=== PATIENT | male | born 1975 | race Hispanic/Latino ===

== ENCOUNTER 2019-05-31 18:16 | Inpatient (IN) | payer OTHER, SELFPAY ==
[2019-05-31 20:01] LABS: #Eosinphils 0.1 thou/uL (0.0-0.7); #Lymphocytes 0.6 thou/uL (1.20-3.40); %Basophils 0.1 % (0.0-1.0); %Eosinophils 0.9 % (0.0-10.0); %Lymphocytes 4.4 % (21.0-51.0); %Monocytes 14.4 % (0.0-10.0); %Neutrophils 80.2 % (42.0-75.0); Hemoglobin 7.4 g/dL (14.0-18.0); Mean Corpuscular Hemoglobin 26.2 pg (27.0-31.0); Mean Corpuscular Volume 87.5 fL (78.0-98.0); Mean Platelet Volume 10.7 fL (7.4-10.4); Platelet Count 117 thou/uL (130-400); RBC Distribution Width 18.3 % (11.5-14.5); Red Blood Cell (RBC) Count 2.81 mill/uL (4.70-6.10); White Blood Cell (WBC) Count 13.7 thou/uL (4.8-10.8)
[2019-05-31 20:04] LABS: INR-International Normal Ratio 2.6; PTT 45.1 SEC (22.9-36.1); Prothrombin Time 27.8 SEC (12.0-14.7)
[2019-05-31 20:17] LABS: Anisocytosis SLIGHT = 6-15 cells (100X) (0-5/hpf); Hypochromia SLIGHT = 6-15 cells (100X) (0-5/hpf); MDiff Complete? YES; Ovalocytes SLIGHT = 2-5 cells (100X) (0-1/hpf); Platelet Morphology Comment Appears Decreased; Polychromasia MODERATE = 3-4 cells (100X) (0-2/hpf); Schistocytes SLIGHT = 2-5 cells (100X) (0-1/hpf); Target Cells SLIGHT = 2-5 cells (100X) (0-1/hpf)
--- NOTE | 2019-05-31 20:18 | RAD ---
PORTABLE CHEST: 06/01/19 HISTORY: Shortness of breath. COMPARISON: 05/12/19. Poor inspiration. The lungs appear clear of infiltrate. Vascularity is within normal range. IMPRESSION: No acute finding or interval change noted. POS: AGW
[2019-05-31 20:20] LABS: ALT (SGPT) 67 U/L (8-55); AST (SGOT) 154 U/L (5-34); Albumin 2.2 g/dL (3.5-5.0); Alkaline Phosphatase 114 U/L (40-110); Anion Gap 13 mmol/L (10-20); BUN (Urea Nitrogen) 40 mg/dL (8.9-20.6); Calc. Creatinine Clearance 0 mL/min (70-130); Calcium 7.9 mg/dL (7.8-10.44); Carbon Dioxide 23 mmol/L (22-29); Chloride 94 mmol/L (98-107); Estimated GFR-MDRD 36; Globulin 4.5 g/dL (2.4-3.5); Glucose 128 mg/dL (70-105); Protein, Total 6.7 g/dL (6.0-8.3); Sodium 126 mmol/L (136-145)
[2019-05-31 20:30] LABS: Bilirubin, Total 27.3 mg/dL (0.2-1.2)
[2019-05-31] MEDS ORDERED: Fentanyl 100 MCG/2 ML VIAL ONE (20:49)
[2019-05-31] MEDS ORDERED: Albumin 25% 25 GM/100 ML BOT IVPB SCH (23:45)
[2019-05-31] MEDS ORDERED: Midodrine HCl 5 MG TAB PO SCH (23:45)
[2019-05-31 23:51] LABS: Lactic Acid 1.3 mmol/L (0.5-2.2)
[2019-05-31] MEDS ORDERED: Senokot S 8.6-50 MG TAB PO PRN (23:58)
[2019-05-31] MEDS ORDERED: Ondansetron PF 4 MG/2 ML Vial IVP PRN (23:58)
[2019-06-01] MEDS ORDERED: Dextrose 5 % And 0.9 % NaCl 1,000 ML IV SCH (00:15)
[2019-06-01] MEDS ORDERED: Phytonadione 10 MG/ML AMP PO SCH (00:15)
[2019-06-01] MEDS ORDERED: Fentanyl 100 MCG/2 ML VIAL ONE (00:19)
[2019-06-01] MEDS ORDERED: Pantoprazole 40 MG VIAL IVP SCH (00:30)
--- NOTE | 2019-06-01 01:25 | HP ---
The patient was seen and examined on 05/31/2019. CHIEF COMPLAINT: Abdominal discomfort. HISTORY OF PRESENT ILLNESS: The patient is a 43-year-old male with alcoholic cirrhosis with portal hypertension, presented to the hospital with above complaints. Approximately 3 weeks ago, the patient was admitted at this facility with melena, generalized weakness, and shortness of breath. 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 He was transferred to [facility]. Four days ago, he was discharged from [facility]. Per patient's report, he underwent coiling for the above procedure. TIPS was not performed. He presented to the emergency room with worsening abdominal distention along with discomfort mainly in the lower quadrants. He denies any nausea, vomiting, diarrhea, or constipation. He had paracentesis at 2-[address] [facility]. He denies any fever or chills. The ER resident, Dr. Trevino discussed with the hospitalist at [facility] regarding the transfer. The transfer was declined. His bilirubin at discharge 4 days ago was around 24. His creatinine was in normal range. The ER resident, Dr. Trevino also discussed with Dr. Nichole who recommended IV albumin along with midodrine. He received 1 dose of albumin along with midodrine in the emergency room. PAST MEDICAL HISTORY: 1. Alcoholic cirrhosis with portal hypertension, coagulopathy, and hypoalbuminemia. 2. History of alcohol abuse. The patient denies any current use of alcohol. 3. Hyponatremia. 4. Recent GI bleeding as discussed above. 5. Cholelithiasis. 6. Chronic hepatitis C. His hepatitis C RNA was 42,800 international units per mL earlier this month. PAST SURGICAL HISTORY: EGD and the coiling procedure as discussed above. ALLERGIES: NO KNOWN DRUG ALLERGIES. ALLERGIES: NO KNOWN DRUG ALLERGIES. CURRENT HOME MEDICATIONS: The patient is unable to recall any of his home medication. He states that he is on diuretic along with multivitamin and one medicine for acid reflux, which he was unable to afford (the cost was 500 dollars). He is on oxycodone for pain per patient's report. SOCIAL HISTORY: The patient is a former alcohol abuser. He has not drank since last admission per the patient's report. No current use of smoking, alcohol, or drug use. FAMILY HISTORY: Negative for liver malignancy. Mother with diabetes. REVIEW OF SYSTEMS: All other review of systems were reviewed and were found negative. The patient denies any dysuria, hematuria, or urgency. PHYSICAL EXAMINATION: VITAL SIGNS: Temperature 98.1, respirations 22, pulse rate of 107 with a blood pressure 106/72, O2 saturation 92% on room air. GENERAL: A 43-year-old male, in mild distress due to abdominal discomfort. HEENT: Head, atraumatic and normocephalic. Sclerae anicteric. Dry mucous membranes. No oral lesion. NECK: Supple. No JVD appreciated. No carotid bruit. LUNGS: Showed diminished air entry at bilateral bases. No wheezing, rales, or rhonchi. HEART: S1 and S2 present. Regular rate and rhythm. No rubs or gallops. ABDOMEN: Firm, distended. No guarding or rigidity. There is fluid, thrill, and shifting dullness. No costovertebral angle tenderness. EXTREMITIES: 1+ edema in bilateral lower extremity. No calf tenderness. SKIN: Warm and dry. LYMPH NODE: No palpable lymph nodes in the neck. PERIPHERAL VASCULAR: Radial pulses palpable bilaterally. MUSCULOSKELETAL: No joint swelling or tenderness. LABORATORY FINDINGS: WBC 13.7 with hemoglobin 7.4, hematocrit 24.6 with platelet of 117. Recent iron profile showed iron of 17 with TIBC 263, ferritin of 24.6, vitamin B12 of 1276. Folic acid was normal at 11.9, alpha-fetoprotein was 3.1, albumin 2.2, bilirubin of 27.3 with AST 154, ALT 67, alkaline phosphatase 114. Ammonia was normal. Lactic acid normal. Sodium 126 with creatinine 2.03. Chest x-ray by my review show diminished air entry at bilateral bases. No rales or rhonchi. Telemetry monitoring by my review showed sinus tachycardia. IMPRESSION: 1. Symptomatic ascites secondary to decompensated cirrhosis. 2. Cirrhosis secondary to alcoholism as well as chronic hepatitis C. 3. Acute kidney injury, probably secondary to diuretics. Questionable hepatorenal syndrome. 4. Hyponatremia secondary to cirrhosis. 5. Hypoalbuminemia, coagulopathy, and thrombocytopenia secondary to cirrhosis. 6. History of alcohol abuse. 7. Chronic anemia. His hemoglobin at discharge [address] [facility] was 7.4 per ER physician's report. 8. Cholelithiasis. 9. History of duodenal varices, status post recent intervention at [facility] PLAN: The patient will be monitored on the telemetry unit. We will start him on albumin along with midodrine per GI recommendation. We will also start him on gentle hydration. Consult GI and Nephrology. IV PPIs. N.p.o. We will check ultrasound hepatic Doppler to rule out biliary obstruction versus thrombosis in the portal vein. We will also schedule a paracentesis. We will give him one dose of vitamin K. We will recheck PT/INR in a.m. Recheck all labs in a.m. Blood cultures have been sent. We will hold antibiotics and steroids per GI recommendation. The patient will be kept n.p.o. Ascitic fluid cell count, Gram stain, and culture has been ordered. We will also check urinalysis. Plan of care was discussed with the patient in detail. He stated understanding. Job ID: [id number]
[2019-06-01] MEDS: Morphine 2 MG/ML SYRINGE SLOW IVP PRN ×2 (03:50→07:45)
[2019-06-01] MEDS: Albumin 25% 25 GM/100 ML BOT IVPB SCH ×2 (05:14→17:09)
[2019-06-01 05:52] LABS: #Eosinphils 0.1 thou/uL (0.0-0.7); #Lymphocytes 0.8 thou/uL (1.20-3.40); #Monocytes 1.8 thou/uL (0.11-0.59); #Neutrophils 9.4 thou/uL (1.40-6.50); %Basophils 0.2 % (0.0-1.0); %Lymphocytes 6.4 % (21.0-51.0); %Monocytes 14.5 % (0.0-10.0); Hemoglobin 6.7 g/dL (14.0-18.0); Mean Corpuscular HGB CONC 30.6 g/dL (32.0-36.0); Mean Corpuscular Hemoglobin 26.5 pg (27.0-31.0); Mean Corpuscular Volume 86.6 fL (78.0-98.0); Platelet Count 99 thou/uL (130-400); RBC Distribution Width 18.2 % (11.5-14.5); Red Blood Cell (RBC) Count 2.54 mill/uL (4.70-6.10); White Blood Cell (WBC) Count 12.1 thou/uL (4.8-10.8)
[2019-06-01 05:53] LABS: INR-International Normal Ratio 2.9; Prothrombin Time 29.9 SEC (12.0-14.7)
[2019-06-01 05:54] LABS: PTT 48.1 SEC (22.9-36.1)
[2019-06-01 06:11] LABS: ALT (SGPT) 61 U/L (8-55); AST (SGOT) 139 U/L (5-34); Albumin 2.1 g/dL (3.5-5.0); Alkaline Phosphatase 114 U/L (40-110); Anion Gap 11 mmol/L (10-20); BUN (Urea Nitrogen) 44 mg/dL (8.9-20.6); Bilirubin, Direct Greater than 10.0 mg/dL (0.1-0.3); Calc. Creatinine Clearance 73 mL/min (70-130); Calcium 7.6 mg/dL (7.8-10.44); Carbon Dioxide 24 mmol/L (22-29); Chloride 95 mmol/L (98-107); Estimated GFR-MDRD 35; Glucose 133 mg/dL (70-105); Lipase 98 U/L (8-78); Magnesium 2.3 mg/dL (1.6-2.6); Phosphorus 4.3 mg/dL (2.3-4.7); Potassium 3.7 mmol/L (3.5-5.1); Protein, Total 6.1 g/dL (6.0-8.3); Sodium 126 mmol/L (136-145)
[2019-06-01] MEDS ORDERED: Sodium Bicarbonate 2.5 MEQ/5 ML VIAL ONE (08:34)
[2019-06-01 08:48] LABS: Bilirubin 3+ (Negative); Blood, Urine Negative (Negative); Clarity Turbid (Clear); Glucose, Urine (Dipstick) Normal (Negative); Leukocyte Negative Leu/uL (Negative); Nitrite Negative (Negative); Protein, Urine (Dipstick) Negative (Neg-Trace); RBC/HPF 0-3 HPF (0-3); Squamous Epithelial 0-3 HPF (0-3); Urobilinogen Normal mg/dL (Less than 2)
[2019-06-01 08:49] LABS: Bacteria/HPF 1+ HPF (None Seen)
[2019-06-01] MEDS ORDERED: Midodrine HCl 5 MG TAB PO SCH (09:00)
--- NOTE | 2019-06-01 09:30 | ULT ---
Ultrasound-guided paracentesis: HISTORY: Symptomatic ascites FINDINGS: Informed consent obtained prior to the procedure. Preprocedural imaging demonstrated signif icant ascites throughout the abdomen and pelvis. Left lower quadrant prepped and draped in normal sterile fashion and anesthetized with 1% buffered li docaine. With direct sonographic guidance, 5 Serbian Yueh catheter is advanced into the ascites and removal of the stylet yielded yellow fluid. 1.0 L was removed. The patient tolerated the procedure well. No postprocedural complications. IMPRESSION: Successful ultrasound-guided paracentesis yielding 1 L of yellow ascites.
[2019-06-01] MEDS: Midodrine HCl 5 MG TAB PO SCH ×3 (10:16→22:52)
[2019-06-01] MEDS: Multivit, Therapeutic 1 TAB PO SCH (10:16)
[2019-06-01] MEDS: Thiamine 100 MG TAB PO SCH (10:16)
[2019-06-01] MEDS: Folic Acid 1 MG TAB PO SCH (10:16)
[2019-06-01] MEDS: Pantoprazole 40 MG VIAL IVP SCH ×3 (10:17→22:52)
[2019-06-01 11:03] LABS: BF Color Yellow; Body Fluid Source Abscess Fluid; Clarity Hazy (Clear); Tube # EDTA
[2019-06-01 11:04] LABS: RBC Count-Automated (BF) 270 /cumm; WBC/Nucleated-Auto (BF) 173 uL
[2019-06-01 11:06] LABS: BF Segmented Neutrophils 2 %; Cell Count Non Hematic 64 %; Lymphocytes 34 %
[2019-06-01] MEDS: traMADol HCl 50 MG TAB PO PRN ×2 (11:39→17:08)
--- NOTE | 2019-06-01 12:29 | CON ---
DATE OF CONSULTATION: REASON FOR CONSULTATION: Elevated creatinine. HISTORY OF PRESENT ILLNESS: This is a 43-year-old gentleman, who presented to the hospital with hepatorenal syndrome. The patient's creatinine has increased from a baseline of 0.7 to 2.08. The patient has significant liver failure and variceal bleeding. The patient underwent a coiling procedure recently. PAST MEDICAL HISTORY: Significant for alcoholic cirrhosis, alcohol abuse, hyponatremia, GI bleeding, cholelithiasis, hepatitis C, and history of EGD and coiling. ALLERGIES: REVIEWED. MEDICATIONS: Home medications list reviewed. Hospital medications reviewed. SOCIAL HISTORY: alcohol abuse. REVIEW OF SYSTEMS: A 15-point review of system was performed, negative except for positives noted above. GENERAL: HEAD: NECK: No swelling or lumps. NOSE: No epistaxis or discharge. EYES: No diplopia or pain. RESPIRATORY: CARDIOVASCULAR: GASTROINTESTINAL: /FIELD CREW CHIEF: MUSCULOSKELETAL: No joint pain. NEUROPSYCHIATIC SYSTEMS: No suicidal ideation. No ideation. SKIN: Denies any rash or ulcer. CONSTITUTIONAL: No fever or chills. PHYSICAL EXAMINATION: CONSTITUTIONAL: The patient is awake and alert. VITAL SIGNS: Pulse 75, breathing 16, blood pressure was . GENERAL APPEARANCE AND MENTAL STATUS: Fair. HEAD/NECK: Normocephalic. Atraumatic. EYES: EOMI. No deformity. EARS: Clear. No ulcers. NOSE: Intact. No lesions. MOUTH: Clear. No discharge. THROAT: Clear. No exudate. LUNGS: Clear. No crackles. CARDIAC: S1, S2. No rub. ABDOMEN: Benign. Bowel sounds positive. GENITALIA/RECTUM: Disla absent. BACK/EXTREMITIES: Edema 0+. NEUROLOGICAL: Alert and motor intact. SKIN: LYMPHATICS: ASSESSMENT AND RECOMMENDATION: 1. Acute kidney injury with chronic kidney disease stage 3, most likely due to hepatorenal syndrome. I would recommend hydration. 2. Other possible causes could be increasing abdominal pressure. No indication for dialysis. Hypertension, stable. Anemia, stable. Overall prognosis is poor. Job ID: [id number]
--- NOTE | 2019-06-01 14:56 | PDOC.HOSPP ---
- Subjective Encounter Date: 06/01/19 Encounter Time: 14:54 Subjective: The patient had paracentesis and had 1 litr taken out. - Objective Vital Signs & Weight: Vital Signs (12 hours) Temp Pulse Resp BP Pulse Ox 06/01/19 11:03 97.7 F 104 H 18 137/64 94 L 06/01/19 07:48 92 L 06/01/19 07:40 97.8 F 104 H 22 H 138/65 92 L 06/01/19 04:00 98.1 F 102 H 16 132/69 94 L Weight Admit Weight 242 lb 3.2 oz Weight 242 lb 3.2 oz I&O: 05/31/19 06/01/19 06/02/19 06:59 06:59 06:59 Intake Total 0 Output Total 400 Balance -400 Result Diagrams: 06/01/19 05:01 06/01/19 05:01 Hospitalist ROS - Medication Medications: Active Medications Generic Name Dose Route Start Last Admin Trade Name Freq PRN Reason Stop Dose Admin Albumin Human 25 gm 06/01/19 06:00 06/01/19 05:14 Albumin 25% IVPB 06/02/19 06:01 25 gm Q8HR GIN Administration Folic Acid 1 mg 06/01/19 09:00 06/01/19 10:16 Folvite PO 1 mg DAILY GIN Administration Midodrine 5 mg 06/01/19 09:00 06/01/19 10:16 Proamatine PO 5 mg BID GIN Administration Multivitamins 1 tab 06/01/19 09:00 06/01/19 10:16 Theragran PO 1 tab DAILY GIN Administration Pantoprazole Sodium 40 mg 06/01/19 09:00 06/01/19 10:17 Protonix IVP 40 mg Q12HR GIN Administration Thiamine HCl 100 mg 06/01/19 09:00 06/01/19 10:16 Thiamine PO 100 mg DAILY GIN Administration Tramadol HCl 50 mg 06/01/19 10:48 06/01/19 11:39 Ultram PO 50 mg Q6H PRN Administration Pain - Exam General Appearance: NAD, awake alert, ill appearing Eye: PERRL, anicteric sclera, scleral icterus ENT: normocephalic atraumatic, no oropharyngeal lesions, moist mucosa, dry oral mucosa Neck: supple, symmetric, no JVD, no thyromegaly, no lymphadenopathy, no carotid bruit, JVD Heart: RRR, no murmur, no gallops, no rubs, normal peripheral pulses, irregular , diminshed peripheral pulses, murmur present, II/IV, III/IV Gastrointestinal: soft, non-tender, non-distended, normal bowel sounds, no palpable masses, no hepatomegaly, no splenomegaly, no bruit, no guarding, no rigidity, tender to palpation, distended, diminished bowl sounds, voluntary guarding Extremities: no cyanosis, no clubbing, no edema, 1+ LE edema, 2+ LE edema, clubbing Skin: normal turgor, no lesions, no rashes, tenting Neurological: cranial nerve grossly intact, normal sensation to touch, no weakness, no focal deficits, no new deficit, facial droop, hemiplegia, speech deficit, vision deficit Psychiatric: normal affect, normal behavior, A&O x 3, oriented to person, oriented to place, oriented to time, not oriented, flat affect, somnolent, lethargic Hosp A/P (1) Ascites Code(s): R18.8 - OTHER ASCITES Status: Acute Plan: paracentesis, GI consult (2) Anemia Code(s): D64.9 - ANEMIA, UNSPECIFIED Status: Acute
[2019-06-01] MEDS ORDERED: Multivitamins, Adult 10 ML, Folic Acid 1 MG, Thiamine HCl 100 MG in Dextrose 5 %-0.45 %... IV SCH (15:00)
--- NOTE | 2019-06-01 15:46 | ULT ---
HEPATIC ULTRASOUND WITH DOPPLER: HISTORY: Abnormal LFTs. CORRELATION: CT scan from 05/12/2019. FINDINGS: The liver has an irregular surface, consistent with cirrhosis. There is a 12 x 15 x 12 mm hyperechoic focus in the left lobe of the liver and an 11 x 10 x 9 mm hyperechoic focus in the right lobe of the liver. the spleen is enlarged measuring 19 cm in length. There is sludge in the gallbladder without gallbladder wall thickening. The common duct measures 4 mm in diameter. The pancreas is not satisfact orily visualized due to overlying bowel gas. No right-sided hydronephrosis is seen. There is a modera te amount of ascites. There is suggestion of bi-directional flow in the main portal vein. IMPRESSION: 1. Cirrhosis of the liver. 2. Splenomegaly. 3. Ascites. 4. Gallbladder sludge. 5. Hyperechoic lesions in the liver. These likely represent hemangiomas. POS: LA NENA
[2019-06-01] MEDS: Octreotide Acetate 1,250 MCG in Sodium Chloride 0.9% 250 ML 250 ML IVPB SCH (18:18)
[2019-06-01] MEDS: Dextrose 5 % And 0.9 % NaCl 1,000 ML IV SCH (18:45)
[2019-06-01] MEDS: Multivitamins, Adult 10 ML, Folic Acid 1 MG, Thiamine HCl 100 MG in Dextrose 5 %-0.45 %... IV SCH (22:49)
[2019-06-02] MEDS: Albumin 25% 25 GM/100 ML BOT IVPB SCH ×2 (00:09→10:15)
[2019-06-02] MEDS: traMADol HCl 50 MG TAB PO PRN ×3 (02:07→19:20)
[2019-06-02] MEDS: Dextrose 5 % And 0.9 % NaCl 1,000 ML IV SCH ×3 (03:07→21:56)
[2019-06-02 05:46] LABS: Bilirubin, Total 24.9 mg/dL (0.2-1.2)
[2019-06-02 05:49] LABS: INR-International Normal Ratio 3.1; PTT 50.3 SEC (22.9-36.1); Prothrombin Time 31.7 SEC (12.0-14.7)
[2019-06-02 05:56] LABS: Anisocytosis SLIGHT = 6-15 cells (100X) (0-5/hpf); Band 8 % (5-11); Eosinophils 2 % (0-10); Hemoglobin 6.9 g/dL (14.0-18.0); Lymphocytes 4 % (21-51); MDiff Complete? YES; Mean Corpuscular HGB CONC 30.6 g/dL (32.0-36.0); Mean Corpuscular Hemoglobin 26.4 pg (27.0-31.0); Mean Corpuscular Volume 86.1 fL (78.0-98.0); Mean Platelet Volume 10.7 fL (7.4-10.4); Monocytes 10 % (0-10); Neutrophil 76 % (42-75); Platelet Count 78 thou/uL (130-400); Platelet Morphology Comment Appears Decreased; RBC Distribution Width 17.3 % (11.5-14.5); Red Blood Cell (RBC) Count 2.63 mill/uL (4.70-6.10); White Blood Cell (WBC) Count 9.6 thou/uL (4.8-10.8)
[2019-06-02 06:09] LABS: ALT (SGPT) 49 U/L (8-55); AST (SGOT) 111 U/L (5-34); Albumin 2.8 g/dL (3.5-5.0); Alkaline Phosphatase 99 U/L (40-110); Anion Gap 12 mmol/L (10-20); BUN (Urea Nitrogen) 38 mg/dL (8.9-20.6); Calc. Creatinine Clearance 85 mL/min (70-130); Calcium 7.6 mg/dL (7.8-10.44); Carbon Dioxide 24 mmol/L (22-29); Chloride 97 mmol/L (98-107); Estimated GFR-MDRD 42; Glucose 123 mg/dL (70-105); Magnesium 2.3 mg/dL (1.6-2.6); Phosphorus 3.4 mg/dL (2.3-4.7); Potassium 3.9 mmol/L (3.5-5.1); Protein, Total 6.1 g/dL (6.0-8.3); Sodium 129 mmol/L (136-145)
[2019-06-02 06:16] LABS: Bilirubin, Direct 14.7 mg/dL (0.1-0.3)
--- NOTE | 2019-06-02 08:40 | CON ---
DATE OF CONSULTATION: 06/01/2019 REASON FOR CONSULTATION: Liver disease. HISTORY OF PRESENT ILLNESS: Mr. Go is a 43-year-old man, who is admitted to the hospital with ascites and end-stage liver disease. He was at this facility earlier on May, admitted from the to the and was seen by Dr. Rodriguez, my partner. He was deemed to have severe alcoholic liver disease and cirrhosis. He had melena before that admission, came with a hemoglobin of 4.8, INR was 1.6, bilirubin of 2.7. So the hepatosplenomegaly, nodular liver, prominent portal hypertensive changes with splenomegaly and varices. He underwent an EGD, by Dr. Rodriguez was found to have varices with stigmata of bleeding in the duodenum. He was kept on octreotide. Stabilized, but hepatitis C antibody and RNA came back positive ultimately. He had no signs of SBP at that admission and was ultimately transferred to [facility] in [place] for possible TIPS secondary to small-bowel varices. The patient was readmitted last night. His significant other in the patient's self note that he was having worsening distention and abdominal pain. His pain is seemed to worse since he had the procedure in [place] at [facility] they say. We have no records, but it was performed. The significant other notes he did not have a TIPS, but in fact they did an upper scope with some type of "glue injection into the varix because it was about to burst. The patient states he has had worse pain since that time. Ultimately, his ascites got worse and he came into the hospital last night for paracentesis. He denies any fever or chills. He denies any nausea or vomiting. He denies any confusion. He states he has been trying to stick to his fluid restriction and low-sodium diet and take his medicines. The patient's significant other asked about liver transplant evaluations and information about insurance. They reported at [facility], so they could evaluate him for transplant if he became insured. He reports he is not drinking any longer. He denies using Tylenol or other NSAIDs. He had a diagnostic paracentesis today, which showed no signs of SBP. His liver function is much worse, his bilirubin up to 24. He has been started on some IV albumin and midodrine secondary to low blood pressure and insufficiency for possible hepatorenal syndrome, and Nephrology has been consulted. PAST MEDICAL HISTORY: 1. Alcoholic cirrhosis. 2. Portal hypertension. 3. Coagulopathy. 4. Hypoalbuminemia. 5. History of alcohol abuse. He states he has not drank since the 4th of this month. 6. Hyponatremia. 7. Recent GI bleed from duodenal varices with apparent injection with fibrin glue or some type of other products similar to that in [place]. 8. Cholelithiasis. 9. Chronic hepatitis C. 10. New onset renal insufficiency. PAST SURGICAL HISTORY: EGD here and EGD at [facility]. ALLERGIES: NONE KNOWN. MEDICATIONS: At home, he was taking the vitamin, reflux, a diuretic, and some oxycodone for pain. Home list includes oxycodone, thiamine, sucralfate, Aldactone, Protonix, multivitamin, melatonin, furosemide, and folic acid. His present medications here include albumin 25 IV q.8h, calcium carbonate, D5 normal saline at 50, folic acid, midodrine 5 mg b.i.d., multivitamin, Zofran p.r.n. Protonix 40 mg q.12, thiamine, and tramadol. PHYSICAL EXAMINATION: VITAL SIGNS: On admission, temperature 97.9, pulse 102 to 104, blood pressure 137/64. GENERAL: He is deeply jaundiced and icteric. He is fetor hepaticus. NECK: Supple without nodes. HEENT: Conjunctivae and sclerae are jaundiced respectively. LUNGS: Clear. HEART: Regular rhythm. ABDOMEN: Protuberant, somewhat firm. There is no rebound or guarding. There is dullness. There is no fluid wave. There is palpable hepatomegaly. EXTREMITIES: No clubbing or cyanosis. There is edema. He has positive asterixis. LABORATORY STUDIES: Hemoglobin 7.4 on admission, it was 6.6 on discharge on 05/13, 6.7 this morning; platelets 99; and white count 12. INR 2.9. Sodium 126; potassium 3.7; BUN and creatinine 44 and 2.08, they were 40 and 2.03 yesterday. Bilirubin is 27, it was 2.7 on 05/12; AST and ALT are 139 and 61; and alkaline phosphatase is 114. Ceruloplasmin was normal on last admission. AFP was normal on last admission at 3.1. B12 was normal. Folate was normal. Lipase was normal. Autoimmune workup was negative. Iron levels were low. Imaging today; 1 L of yellow ascites was removed by ultrasound. CT abdomen and pelvis on 05/12, as per HPI. ASSESSMENT: 1. Cirrhosis with end-stage liver disease. He has had rapid progression of his elevated bilirubin, likely due to his severe alcoholic hepatitis. He had no signs of acute hepatitis A, B, or C. He does have chronic C. He got signs of fluid overload, hyponatremia, encephalopathy, and coagulopathy, all of which indicate poor prognosis and high risk of mortality. His discriminant function is well over 40. 2. Tap negative for spontaneous bacterial peritonitis. 3. Acute renal failure, likely related to hepatorenal syndrome, possibly related to medications at home. No signs of spontaneous bacterial peritonitis. 4. History of variceal bleeding with fibrin glue or some type of equaling procedure of the varices at [facility]. Those records are not available. He was sent for a transjugular intrahepatic portosystemic shunt, but they felt this was a better management tool. He has had no further bleeding since then, but remains anemic. The patient does feel that since then his stomach hurt more. I suspect the increased discomfort is probably related to his progressively worsening liver disease. RECOMMENDATIONS: 1. Albumin IV q.8. Agree with transfusing a unit of blood, holding albumin during that time. Midodrine b.i.d., Protonix, and normal saline at 100 an hour. 2. We would start octreotide drip as well, which could be helpful in hepatorenal syndrome. 3. As there are no signs of infection at this time, we will start steroids, this may help his acute alcoholic hepatitis. However, if he has worsening renal failure, studies have shown that with elevated creatinine is not helpful. 4. We would consult Palliative Care. I have had a win discussion that the patient is high risk of mortality this admission. Job ID: [id number]
[2019-06-02] MEDS: Midodrine HCl 5 MG TAB PO SCH ×2 (09:00→21:40)
[2019-06-02] MEDS: Thiamine 100 MG TAB PO SCH (09:00)
[2019-06-02] MEDS: Multivit, Therapeutic 1 TAB PO SCH (09:00)
[2019-06-02] MEDS: Folic Acid 1 MG TAB PO SCH (09:00)
[2019-06-02] MEDS: Pantoprazole 40 MG VIAL IVP SCH ×2 (09:01→21:40)
[2019-06-02] MEDS: prednisoLONE 10 MG ODT TAB PO SCH (10:14)
[2019-06-02] MEDS: Octreotide Acetate 1,250 MCG in Sodium Chloride 0.9% 250 ML 250 ML IVPB SCH (10:15)
[2019-06-02] MEDS: Multivitamins, Adult 10 ML, Folic Acid 1 MG, Thiamine HCl 100 MG in Dextrose 5 %-0.45 %... IV SCH (10:18)
--- NOTE | 2019-06-02 12:37 | PRG ---
DATE OF SERVICE: 06/02/2019 SUBJECTIVE: Mr. Go is sitting up at the side of the bed, eating. He is without any confusion. He denies any pain. OBJECTIVE: VITAL SIGNS: Temperature is 98, pulse 94, blood pressure 143/63. HEENT: He is icteric, deeply jaundiced. LUNGS: Clear. ABDOMEN: Tense and distended with dullness to percussion. EXTREMITIES: Reveal edema. He has gross anasarca. He has strong fetor hepaticus. LABORATORY DATA: White count 9.6, hemoglobin 6.9, platelet count 78,000. INR 3. Sodium 129 with potassium of 3.9, BUN and creatinine are 38 and 1.78, glucose 123. Bilirubin 24.9, direct 14; AST 111; ALT 49; albumin 2.8. Protein 6. Hepatic liver Dopplers yesterday showed no evidence of portal vein thrombosis, to and fro movement of the portal vein. Paracentesis fluid showed 173 white blood cells, no evidence of SBP. ASSESSMENT: 1. Acute alcoholic hepatitis with liver failure. 2. History of gastrointestinal bleed with duodenal varices, transferred last admission to [facility] where he had either coiling or glue instillation in the varices and not a TIPS. 3. The patient readmitted with worsening ascites and marked decompensation and liver failure with the INR of over 3 now, bilirubin up to 24 . There are no signs of any vascular disease or infarction of the liver on imaging studies. We would not perform any contrast studies on him. This is probably natural progression of the acute alcoholic hepatitis. It is possible that hypertension with bleeding or interventions with glue or emboli in the duodenum could have affected the liver, but there is no evidence of this at this time. Presently, he is without insurance, without options for liver transplant as he has been drinking up until just a few weeks ago. RECOMMENDATIONS: 1. I would continue octreotide and albumin for his renal failure, what appears to be hepatorenal failure. We would tap with paracentesis symptomatically as needed with Interventional Radiology. 2. We would continue banana bag daily. 3. If his blood pressure stays up, he does not need midodrine. We would continue octreotide drip as it can help with hepatorenal failure and we would continue the prednisolone as it could help with the alcoholic hepatitis, although it is less likely it will help in individuals with hepatorenal failure. His creatinine is improving however. Dr. Quinones will be here to follow over the weekend. The patient's risk for morbidity and mortality is quite high. Job ID: [id number]
--- NOTE | 2019-06-02 14:30 | PDOC.HOSPP ---
- Subjective Encounter Date: 06/02/19 Encounter Time: 14:28 Subjective: doing well, abdominal pain better - Objective Vital Signs & Weight: Vital Signs (12 hours) Temp Pulse Resp BP Pulse Ox 06/02/19 08:00 98.8 F 94 18 142/63 H 94 L 06/02/19 03:32 98.4 F 98 18 124/68 95 Weight Admit Weight 242 lb 3.2 oz Weight 242 lb 3.2 oz I&O: 06/01/19 06/02/19 06/03/19 06:59 06:59 06:59 Intake Total 50 Output Total 400 Balance -350 Result Diagrams: 06/02/19 04:50 06/02/19 04:50 Hospitalist ROS - Medication Medications: Active Medications Generic Name Dose Route Start Last Admin Trade Name Freq PRN Reason Stop Dose Admin Folic Acid 1 mg 06/01/19 09:00 06/02/19 09:00 Folvite PO 1 mg DAILY GIN Administration Dextrose/Sodium Chloride 1,000 mls @ 100 mls/hr 06/01/19 14:30 06/02/19 09:01 D5 0.9% Ns IV Not Given .Q10H GIN Octreotide Acetate 1,250 mcg/ 251.25 mls @ 15.07 mls/hr 06/01/19 14:30 10:15 Sodium Chloride IVPB 251.25 mls INF GIN Administration 75 MCG/HR Multivitamins 10 ml/ Folic 1,011.2 mls @ 100 mls/hr 06/01/19 20:00 06/02/19 10:18 Acid 1 mg/ Thiamine HCl 100 mg IV 06/04/19 06:07 1,011.2 mls / Dextrose/Sodium Chloride 2000 GIN Administration Midodrine 5 mg 06/01/19 09:00 06/02/19 09:00 Proamatine PO 5 mg BID GIN Administration Multivitamins 1 tab 06/01/19 09:00 06/02/19 09:00 Theragran PO 1 tab DAILY GIN Administration Pantoprazole Sodium 40 mg 06/01/19 09:00 06/02/19 09:01 Protonix IVP 40 mg Q12HR GIN Administration Prednisolone 40 mg 06/02/19 09:00 06/02/19 10:14 Orapred Odt PO 40 mg DAILY GIN Administration Thiamine HCl 100 mg 06/01/19 09:00 06/02/19 09:00 Thiamine PO 100 mg DAILY GIN Administration Tramadol HCl 50 mg 06/01/19 10:48 06/02/19 09:17 Ultram PO 50 mg Q6H PRN Administration Pain - Exam General Appearance: NAD, awake alert, ill appearing Eye: PERRL, anicteric sclera, scleral icterus ENT: normocephalic atraumatic, no oropharyngeal lesions, moist mucosa, dry oral mucosa Neck: supple, symmetric, no JVD, no thyromegaly, no lymphadenopathy, no carotid bruit, JVD Heart: RRR, no murmur, no gallops, no rubs, normal peripheral pulses, irregular , diminshed peripheral pulses, murmur present, II/IV, III/IV Respiratory: CTAB, no wheezes, no rales, no ronchi, normal chest expansion, no tachypnea, normal percussion, rales, rhonchi, tachypneic, wheezes Gastrointestinal: soft, non-tender, non-distended, normal bowel sounds, no palpable masses, no hepatomegaly, no splenomegaly, no bruit, no guarding, no rigidity, tender to palpation, distended, diminished bowl sounds, voluntary guarding Extremities: no cyanosis, no clubbing, no edema, 1+ LE edema, 2+ LE edema, clubbing Skin: normal turgor, no lesions, no rashes, tenting Hosp A/P (1) Ascites Code(s): R18.8 - OTHER ASCITES Status: Acute (2) Anemia Code(s): D64.9 - ANEMIA, UNSPECIFIED Status: Acute - Plan continue care, apreciate GI input. further paracentesis as per GI
--- NOTE | 2019-06-02 15:02 | PRG ---
DATE OF SERVICE: 06/02/2019 SUBJECTIVE: A 43-year-old gentleman, being seen for acute kidney injury. The patient denied nausea, vomiting, or chest pain. OBJECTIVE: CONSTITUTIONAL: The patient is awake and alert. VITAL SIGNS: Pulse 94, breathing 16, blood pressure 124/68. GENERAL APPEARANCE AND MENTAL STATUS: Fair. HEAD/NECK: Normocephalic. Atraumatic. EYES: EOMI. No deformity. EARS: Clear. No ulcers. NOSE: Intact. No lesions. MOUTH: Clear. No discharge. THROAT: Clear. No exudate. LUNGS: Clear. No crackles. CARDIAC: S1, S2. No rub. ABDOMEN: Benign. Bowel sounds positive. GENITALIA/RECTUM: Disla absent. BACK/EXTREMITIES: Edema 0+. NEUROLOGICAL: Alert and motor intact. SKIN: LYMPHATICS: LABORATORY DATA: Showed hemoglobin 6.9. Creatinine 1.7. ASSESSMENT AND PLAN: 1. Acute kidney injury with chronic kidney disease, stage 3, improved. 2. Hypertension, stable. 3. Anemia, stable. We would recommend transfusion. 4. Hyponatremia, stable. 5. Prognosis is poor. Job ID: [id number]
[2019-06-03] MEDS: Octreotide Acetate 1,250 MCG in Sodium Chloride 0.9% 250 ML 250 ML IVPB SCH ×2 (02:53→21:08)
[2019-06-03] MEDS: Dextrose 5 % And 0.9 % NaCl 1,000 ML IV SCH ×2 (02:53→15:06)
[2019-06-03] MEDS: traMADol HCl 50 MG TAB PO PRN ×3 (06:57→20:56)
[2019-06-03] MEDS: Folic Acid 1 MG TAB PO SCH (08:45)
[2019-06-03] MEDS: Thiamine 100 MG TAB PO SCH (08:45)
[2019-06-03] MEDS: Midodrine HCl 5 MG TAB PO SCH ×2 (08:45→20:57)
[2019-06-03] MEDS: Pantoprazole 40 MG VIAL IVP SCH ×2 (08:46→20:57)
[2019-06-03] MEDS: prednisoLONE 10 MG ODT TAB PO SCH (08:46)
[2019-06-03] MEDS: Multivit, Therapeutic 1 TAB PO SCH (08:47)
[2019-06-03] MEDS ORDERED: Multivitamins, Adult 10 ML, Folic Acid 1 MG, Thiamine HCl 100 MG in Dextrose 5 %-0.45 %... IV SCH (10:00)
[2019-06-03 11:15] LABS: Anion Gap 13 mmol/L (10-20); BUN (Urea Nitrogen) 27 mg/dL (8.9-20.6); Calc. Creatinine Clearance 115 mL/min (70-130); Calcium 7.7 mg/dL (7.8-10.44); Carbon Dioxide 21 mmol/L (22-29); Chloride 101 mmol/L (98-107); Estimated GFR-MDRD 58; Glucose 124 mg/dL (70-105); Potassium 3.9 mmol/L (3.5-5.1); Sodium 131 mmol/L (136-145)
--- NOTE | 2019-06-03 11:59 | PRG ---
DATE OF SERVICE: 06/03/2019 SUBJECTIVE: A 43-year-old gentleman, being seen for acute kidney injury. The patient denies any nausea, vomiting, or chest pain. OBJECTIVE: CONSTITUTIONAL: The patient is awake and alert. VITAL SIGNS: Pulse 75, breathing 16, and blood pressure 128/59. GENERAL APPEARANCE AND MENTAL STATUS: Fair. HEAD/NECK: Normocephalic. Atraumatic. EYES: EOMI. No deformity. EARS: Clear. No ulcers. NOSE: Intact. No lesions. MOUTH: Clear. No discharge. THROAT: Clear. No exudate. LUNGS: Clear. No crackles. CARDIAC: S1, S2. No rub. ABDOMEN: Benign. Bowel sounds positive. GENITALIA/RECTUM: Disla absent. BACK/EXTREMITIES: Edema 0+. NEUROLOGICAL: Alert and motor intact. SKIN: LYMPHATICS: LABORATORY DATA: Showed hemoglobin 6.9. Creatinine 1.3. ASSESSMENT AND PLAN: 1. Acute kidney injury, improved. 2. Hypertension, stable. 3. Anemia. We would recommend transfusion. No indication for dialysis. I will sign off on this patient. Please reconsult as needed. Job ID: [id number]
--- NOTE | 2019-06-03 19:00 | PRG ---
DATE OF SERVICE: 06/03/2019 This is a cross coverage for Dr. Francisco J Morgan. SUBJECTIVE: Mr. Ranulfo Go is a 43-year-old with chronic alcohol abuse with alcoholic hepatitis with hepatic decompensation with ascites and deep jaundice. He is making good progress. He appears very comfortable. His liver has been deeply jaundiced. However, he has no nausea, no vomiting. No abdominal pain. He is eating fairly well. He actually offers no complaints at present. PHYSICAL EXAMINATION: VITAL SIGNS: Afebrile. Temperature 97.2 degrees Fahrenheit, pulse is 96, blood pressure 138/84. GENERAL: He is deeply jaundiced. NECK: Supple. CARDIOVASCULAR: First and second heart sounds heard. LUNGS: Clear to auscultation. ABDOMEN: Distended, but soft. Abdomen is nontender. No organomegaly. No masses. LABORATORY DATA: From today; sodium 131, potassium 3.9, chloride 101, bicarb 21, BUN is 27 it is coming down from 44, creatinine is 1.36, glucose 124, calcium 7.7, bilirubin 24.4, direct 14.7, AST 111, ALT 49. CLINICAL IMPRESSION: 1. Alcoholic hepatitis with decompensation. 2. Ascites. 3. Thrombocytopenia. 4. Possible hepatorenal syndrome, on IV octreotide and midodrine. RECOMMENDATIONS: Continue present treatment. No change in treatment plan necessary. Job ID: [id number]
[2019-06-03 21:14] LABS: Hemoglobin 7.8 g/dL (14.0-18.0); Mean Corpuscular HGB CONC 30.5 g/dL (32.0-36.0); Mean Corpuscular Hemoglobin 26.9 pg (27.0-31.0); Mean Corpuscular Volume 88.3 fL (78.0-98.0); Platelet Count 72 thou/uL (130-400); RBC Distribution Width 17.9 % (11.5-14.5); Red Blood Cell (RBC) Count 2.91 mill/uL (4.70-6.10); White Blood Cell (WBC) Count 9.9 thou/uL (4.8-10.8)
[2019-06-03] MEDS ORDERED: Dextrose 5 % And 0.9 % NaCl 1,000 ML IV SCH (21:15)
[2019-06-03 21:27] LABS: ALT (SGPT) 60 U/L (8-55); AST (SGOT) 132 U/L (5-34); Albumin 2.7 g/dL (3.5-5.0); Alkaline Phosphatase 120 U/L (40-110); Protein, Total 6.6 g/dL (6.0-8.3)
[2019-06-03 21:38] LABS: Bilirubin, Total 26.2 mg/dL (0.2-1.2)
--- NOTE | 2019-06-03 22:12 | PDOC.HOSPP ---
- Subjective Encounter Date: 06/03/19 Encounter Time: 20:00 Subjective: Patient states that he feels more short of breath and more distended than this morning. He is requesting paracentesis, says that normally they get 5L out and but yesterday they only got 1L out. He was supposed to get TIPs in [place] but couldn't do it aylin his blood counts were too high. - Objective Vital Signs & Weight: Vital Signs (12 hours) Temp Pulse Resp BP Pulse Ox 06/03/19 16:00 97.5 F L 102 H 16 151/76 H 95 06/03/19 12:00 97.7 F 99 18 142/81 H 97 Weight Admit Weight 242 lb 3.2 oz Weight 250 lb 12.8 oz I&O: 06/02/19 06/03/19 06/04/19 06:59 06:59 06:59 Intake Total 50 1530 1630 Output Total 400 600 Balance -350 1530 1030 Result Diagrams: 06/03/19 21:02 06/03/19 10:39 Hospitalist ROS - Review of Systems Constitutional: denies: fever, chills - Medication Medications: Active Medications Generic Name Dose Route Start Last Admin Trade Name Freq PRN Reason Stop Dose Admin Folic Acid 1 mg 06/01/19 09:00 06/03/19 08:45 Folvite PO 1 mg DAILY GIN Administration Octreotide Acetate 1,250 mcg/ 251.25 mls @ 15.07 mls/hr 06/01/19 14:30 21:08 Sodium Chloride IVPB 251.25 mls INF GIN Administration 75 MCG/HR Midodrine 5 mg 06/01/19 09:00 06/03/19 20:57 Proamatine PO 5 mg BID GIN Administration Multivitamins 1 tab 06/01/19 09:00 06/03/19 08:47 Theragran PO 1 tab DAILY GIN Administration Pantoprazole Sodium 40 mg 06/01/19 09:00 06/03/19 20:57 Protonix IVP 40 mg Q12HR GIN Administration Prednisolone 40 mg 06/02/19 09:00 06/03/19 08:46 Orapred Odt PO 40 mg DAILY GIN Administration Thiamine HCl 100 mg 06/01/19 09:00 06/03/19 08:45 Thiamine PO 100 mg DAILY GIN Administration Tramadol HCl 50 mg 06/01/19 10:48 06/03/19 20:56 Ultram PO 50 mg Q6H PRN Administration Pain - Exam General Appearance: NAD, awake alert Eye: PERRL, scleral icterus ENT: normocephalic atraumatic, no oropharyngeal lesions Neck: supple, symmetric, no JVD, no thyromegaly Heart: RRR, no murmur, no gallops, no rubs Respiratory: CTAB, no wheezes, no rales, no ronchi, tachypneic Gastrointestinal: soft, non-tender, normal bowel sounds Gastrointestinal - other findings: abdomen distended, dull to percussion with ascites present Extremities: no cyanosis, no clubbing, no edema Skin - other findings: jaundice Neurological: cranial nerve grossly intact, normal sensation to touch, no focal deficits, no new deficit Hosp A/P - Plan Consults: Palliative Care Abdominal ultrasound 06/01: liver cirrhosis, splenomegaly, ascites, GB sludge, hemangiomas Chest X ray 06/01: no acute disease This is 43 year old male with cirrhosis who presented with decompensated cirrhosis #Decompensated Cirrhosis #Hepatorenal Syndrome #Acute kidney Injury # Transaminitis - LFT trending up again. S/p paracentesis with 1L drawn out on 06/01. Given that abdomen is distended again, will order repeat paracentesis tomorrow. Body fluid culture and blood culture preliminarily negative. Creatinine improving to 1.3 - continue octreotide and prednisolone - midodrine - IV fluids decrease to 75 cc/hour - GI following, nephro signed off Anemia - improved, hemoglobin up to 7.5, recheck tomorrow Dispo: repeat paracentesis tomorrow Code status: full code DVT prophylaxis: hold for now
--- NOTE | 2019-06-04 00:03 | RAD ---
Exam: Chest one view HISTORY:Cirrhosis. Shortness of breath. Comparison: 05/31/2019 FINDINGS: Cardiac silhouette:Stable upper normal cardiac silhouette. Aorta: Unremarkable Pulmonary vessels: Normal Costophrenic angles: Clear LUNGS: Patchy interstitial and alveolar opacities which appear more pronounced when compared to the p revious examination. Lung volumes are diminished, likely due to a poor inspiratory effort. Pneumothorax: None Osseous abnormalities: None IMPRESSION: 1. Poor inspiratory effort which may result in diminished lung volumes. 2. Patchy interstitial and alveolar opacities which may be due to edema or infiltrate.
[2019-06-04] MEDS: traMADol HCl 50 MG TAB PO PRN ×3 (04:22→17:56)
[2019-06-04 05:41] LABS: INR-International Normal Ratio 3.2; Prothrombin Time 32.2 SEC (12.0-14.7)
[2019-06-04 06:12] LABS: Bilirubin, Total 24.6 mg/dL (0.2-1.2)
[2019-06-04 06:13] LABS: ALT (SGPT) 59 U/L (8-55); AST (SGOT) 110 U/L (5-34); Albumin 2.5 g/dL (3.5-5.0); Alkaline Phosphatase 126 U/L (40-110); Anion Gap 10 mmol/L (10-20); BUN (Urea Nitrogen) 27 mg/dL (8.9-20.6); Calc. Creatinine Clearance 141 mL/min (70-130); Calcium 7.7 mg/dL (7.8-10.44); Carbon Dioxide 21 mmol/L (22-29); Chloride 105 mmol/L (98-107); Estimated GFR-MDRD 75; Globulin 3.7 g/dL (2.4-3.5); Glucose 104 mg/dL (70-105); Potassium 4.4 mmol/L (3.5-5.1); Protein, Total 6.2 g/dL (6.0-8.3); Sodium 132 mmol/L (136-145)
[2019-06-04 06:37] LABS: Hemoglobin 7.5 g/dL (14.0-18.0); Mean Corpuscular HGB CONC 29.3 g/dL (32.0-36.0); Mean Corpuscular Volume 88.7 fL (78.0-98.0); Mean Platelet Volume 11.2 fL (7.4-10.4); Platelet Count 84 thou/uL (130-400); Red Blood Cell (RBC) Count 2.89 mill/uL (4.70-6.10); White Blood Cell (WBC) Count 13.9 thou/uL (4.8-10.8)
[2019-06-04] MEDS: Midodrine HCl 5 MG TAB PO SCH (07:39)
[2019-06-04] MEDS: Folic Acid 1 MG TAB PO SCH (07:39)
[2019-06-04] MEDS: Multivit, Therapeutic 1 TAB PO SCH (07:39)
[2019-06-04] MEDS: Thiamine 100 MG TAB PO SCH (07:39)
[2019-06-04] MEDS: Pantoprazole 40 MG VIAL IVP SCH ×2 (07:39→21:03)
[2019-06-04] MEDS: prednisoLONE 10 MG ODT TAB PO SCH (07:40)
--- NOTE | 2019-06-04 10:03 | ULT ---
LIMITED ULTRASOUND ABDOMEN: Date: 06/04/19 HISTORY: Evaluate for ascites. FINDINGS/IMPRESSION: Cirrhosis of liver seen. Moderate amount of free fluid in the 4 quadrants consistent with ascites. POS: [facility]
[2019-06-04] MEDS ORDERED: Phytonadione 10 MG/ML AMP PO SCH (10:30)
--- NOTE | 2019-06-04 12:08 | PRG ---
DATE OF SERVICE: 06/04/2019 SUBJECTIVE: A 43-year-old gentleman being seen for acute kidney injury. The patient denies any nausea, vomiting, or chest pain. OBJECTIVE: See above. The patient is awake and alert. GENERAL APPEARANCE AND MENTAL STATUS: Fair. VITAL SIGNS: Afebrile, pulse 75, breathing 16, and blood pressure 135/75. HEAD/NECK: Normocephalic. Atraumatic. EYES: EOMI. No deformity. EARS: Clear. No ulcers. NOSE: Intact. No lesions. MOUTH: Clear. No discharge. THROAT: Clear. No exudate. LUNGS: Clear. No crackles. CARDIAC: S1, S2. No rub. ABDOMEN: Benign. Bowel sounds positive. GENITALIA/RECTUM: Disla absent. BACK/EXTREMITIES: Edema 0+. NEUROLOGICAL: Alert and motor intact. SKIN: LYMPHATICS: LABORATORY DATA: Labs show creatinine 1.0. ASSESSMENT AND PLAN: 1. Acute kidney injury, resolved. 2. Hypertension, stable. 3. Anemia, stable. I will sign off on this patient. Please reconsult as needed. Job ID: [id number]
--- NOTE | 2019-06-04 18:55 | PDOC.HOSPP ---
- Subjective Encounter Date: 06/04/19 Encounter Time: 18:03 Subjective: Patient reports persistent shortness of breath but better after stopping fluids. Feels fatigued. No abdominal pain, nausea or vomiting. Could not get paracentesis today due to INR being elevated. - Objective Vital Signs & Weight: Vital Signs (12 hours) Temp Pulse Resp BP Pulse Ox 06/04/19 15:33 98.0 F 107 H 18 140/86 95 06/04/19 11:25 97.6 F 104 H 16 130/78 96 06/04/19 08:00 97 06/04/19 07:53 97.3 F L 107 H 17 128/93 H 97 Weight Admit Weight 242 lb 3.2 oz Weight 243 lb 4.8 oz I&O: 06/03/19 06/04/19 06/05/19 06:59 06:59 06:59 Intake Total 1530 3556 525 Output Total 900 Balance 1530 2656 525 Result Diagrams: 06/04/19 04:48 06/04/19 04:48 Hospitalist ROS - Review of Systems Constitutional: denies: fever, chills - Medication Medications: Active Medications Generic Name Dose Route Start Last Admin Trade Name Freq PRN Reason Stop Dose Admin Folic Acid 1 mg 06/01/19 09:00 06/04/19 07:39 Folvite PO 1 mg DAILY GIN Administration Dextrose/Sodium Chloride 1,000 mls @ 75 mls/hr 06/03/19 21:15 06/04/19 02:49 D5 0.9% Ns IV Not Given .[id number] GIN Multivitamins 1 tab 06/01/19 09:00 06/04/19 07:39 Theragran PO 1 tab DAILY GIN Administration Pantoprazole Sodium 40 mg 06/01/19 09:00 06/04/19 07:39 Protonix IVP 40 mg Q12HR GIN Administration Prednisolone 40 mg 06/02/19 09:00 06/04/19 07:40 Orapred Odt PO 40 mg DAILY GIN Administration Thiamine HCl 100 mg 06/01/19 09:00 06/04/19 07:39 Thiamine PO 100 mg DAILY GIN Administration Tramadol HCl 50 mg 06/01/19 10:48 06/04/19 17:56 Ultram PO 50 mg Q6H PRN Administration Pain - Exam General Appearance: ill appearing General - other findings: jaundiced Eye: scleral icterus ENT: normocephalic atraumatic, no oropharyngeal lesions, dry oral mucosa Neck: supple, symmetric, no JVD, no thyromegaly Heart: RRR, no murmur, no gallops, no rubs Respiratory - other findings: decreased breath sounds at bases Gastrointestinal: soft, no palpable masses Gastrointestinal - other findings: diffues mild tenderness, significant ascites present Extremities: no cyanosis, no clubbing, no edema Neurological: cranial nerve grossly intact, normal sensation to touch, no focal deficits, no new deficit Musculoskeletal: normal strength Hosp A/P - Plan Abdominal ultrasound 06/01: liver cirrhosis, splenomegaly, ascites, GB sludge, hemangiomas Chest X ray 06/01: no acute disease Abd Ultrasound 06/03: moderate ascites This is 43 year old male with cirrhosis who presented with decompensated cirrhosis #Decompensated Cirrhosis #Hepatorenal Syndrome #Acute kidney Injury - resolved # Transaminitis - LFT stable. S/p paracentesis with 1L drawn out on 06/01. Repeat paracentesis tomorrow. Vitamin K given for INR of 3 - d/c octreotide, continue prednisolone per GI - continue midodrine - GI following - creatine normalized Anemia - improved, hemoglobin up to 7.5, recheck tomorrow #Hyponatremia - sodium improved to 132 with IV fluids Dispo: repeat paracentesis tomorrow Code status: full code DVT prophylaxis: hold for now
[2019-06-04] MEDS ORDERED: Furosemide 20 MG/2 ML VIAL SLOW IVP SCH (19:00)
[2019-06-05 06:00] LABS: Hemoglobin 7.2 g/dL (14.0-18.0); Mean Corpuscular Hemoglobin 26.6 pg (27.0-31.0); Mean Corpuscular Volume 88.6 fL (78.0-98.0); Mean Platelet Volume 11.7 fL (7.4-10.4); Platelet Count 76 thou/uL (130-400); Red Blood Cell (RBC) Count 2.72 mill/uL (4.70-6.10); White Blood Cell (WBC) Count 13.5 thou/uL (4.8-10.8)
[2019-06-05 06:03] LABS: INR-International Normal Ratio 3.3; PTT 44.2 SEC (22.9-36.1); Prothrombin Time 33.6 SEC (12.0-14.7)
[2019-06-05 06:21] LABS: ALT (SGPT) 66 U/L (8-55); AST (SGOT) 112 U/L (5-34); Albumin 2.5 g/dL (3.5-5.0); Alkaline Phosphatase 114 U/L (40-110); Anion Gap 13 mmol/L (10-20); BUN (Urea Nitrogen) 31 mg/dL (8.9-20.6); Bilirubin, Total 24.3 mg/dL (0.2-1.2); Calc. Creatinine Clearance 143 mL/min (70-130); Calcium 7.9 mg/dL (7.8-10.44); Carbon Dioxide 21 mmol/L (22-29); Chloride 104 mmol/L (98-107); Estimated GFR-MDRD 75; Globulin 3.6 g/dL (2.4-3.5); Glucose 112 mg/dL (70-105); Potassium 4.1 mmol/L (3.5-5.1); Protein, Total 6.1 g/dL (6.0-8.3); Sodium 134 mmol/L (136-145)
[2019-06-05] MEDS: prednisoLONE 10 MG ODT TAB PO SCH ×2 (08:54→08:55)
[2019-06-05] MEDS: Multivit, Therapeutic 1 TAB PO SCH ×2 (08:54→08:55)
[2019-06-05] MEDS: Folic Acid 1 MG TAB PO SCH ×2 (08:54)
[2019-06-05] MEDS: Pantoprazole 40 MG VIAL IVP SCH ×3 (08:54→09:00)
[2019-06-05] MEDS: Thiamine 100 MG TAB PO SCH ×2 (08:54→09:00)
[2019-06-05] MEDS: traMADol HCl 50 MG TAB PO PRN (09:05)
--- NOTE | 2019-06-05 12:09 | PDOC.HOSPP ---
- Subjective Encounter Date: 06/05/19 Encounter Time: 11:00 Subjective: Patient apperaed more confused, was unable to answer questions. Woke up later, but now is saying he does not feel good and denies abdominal pain. Per nurse, he is refusing oral medications. IR won't do paracentesis because of high INR and low platelets. - Objective Vital Signs & Weight: Vital Signs (12 hours) Temp Pulse Resp BP BP BP Pulse Ox 06/05/19 11:34 98.6 F 103 H 18 143/82 H 98 06/05/19 08:00 97.9 F 102 H 20 154/85 H 97 06/05/19 03:00 98.5 F 110 H 20 142/95 H 98 Weight Admit Weight 242 lb 3.2 oz Weight 247 lb 6.4 oz I&O: 06/04/19 06/05/19 06/06/19 06:59 06:59 06:59 Intake Total 3556 1485 Output Total 900 Balance 2656 1485 Result Diagrams: 06/05/19 05:31 06/05/19 05:31 Hospitalist ROS - Review of Systems Constitutional: denies: fever, chills - Medication Medications: Active Medications Generic Name Dose Route Start Last Admin Trade Name Freq PRN Reason Stop Dose Admin Folic Acid 1 mg 06/01/19 09:00 06/05/19 08:54 Folvite PO Not Given DAILY [facility] Dextrose/Sodium Chloride 1,000 mls @ 75 mls/hr 06/03/19 21:15 06/04/19 02:49 D5 0.9% Ns IV Not Given .[id number] [facility] Multivitamins 1 tab 06/01/19 09:00 06/05/19 08:55 Theragran PO Not Given DAILY GIN Pantoprazole Sodium 40 mg 06/01/19 09:00 06/05/19 08:54 Protonix IVP 40 mg Q12HR GIN Administration Prednisolone 40 mg 06/02/19 09:00 06/05/19 08:55 Orapred Odt PO Not Given DAILY GIN Sodium Chloride 10 ml 05/31/19 23:58 06/05/19 08:55 Flush - Normal Saline IVF 10 ml PRN PRN Administration Saline Flush Thiamine HCl 100 mg 06/01/19 09:00 06/05/19 09:00 Thiamine PO Not Given DAILY GIN Tramadol HCl 50 mg 06/01/19 10:48 06/04/19 17:56 Ultram PO 50 mg Q6H PRN Administration Pain - Exam General Appearance: awake alert, ill appearing General - other findings: jaundice Eye: PERRL, anicteric sclera ENT: normocephalic atraumatic, no oropharyngeal lesions Neck: supple, symmetric, no JVD, no thyromegaly Heart: RRR, no murmur, no gallops, no rubs Respiratory: CTAB, no wheezes, no rales, no ronchi Gastrointestinal: soft, non-tender, normal bowel sounds Gastrointestinal - other findings: significant abdominal distension with ascites Extremities: no cyanosis, no clubbing Skin: normal turgor, no lesions, no rashes Neurological: cranial nerve grossly intact, normal sensation to touch, no focal deficits, no new deficit Hosp A/P - Plan Abdominal ultrasound 06/01: liver cirrhosis, splenomegaly, ascites, GB sludge, hemangiomas Chest X ray 06/01: no acute disease Abd Ultrasound 06/03: moderate ascites This is 43 year old male with cirrhosis who presented with decompensated cirrhosis # Acute encephalopathy likely hepatic #Decompensated Cirrhosis #Hepatorenal Syndrome #Acute kidney Injury - resolved # Transaminitis - LFT stable. S/p paracentesis with 1L drawn out on 06/01. SBP ruled out on initial paracentesis. Repeat paracentesis ordered, however they won't do due to INR of 3 and low platelets. Another dose of vitamin K 2.5 mg. Will discuss with radiology whether they can perform it anyway - d/c octreotide since creatinine normalized. - he is on prednisolone. Will ask GI how long this needs to be continued - continue midodrine - check ammonia level stat - start lactulose TID, titrate to three bowel movements daily #Leukocytosis - WBC increasing to 13, will obtain blood cultures, give prophylactic ceftriaxone 2 g for empiric SBP #Anemia - improved, hemoglobin down to 7.2, continue to monitor #Hyponatremia - improving - up to 134, continue to monitor Dispo: paracentesis KADEN when possible Code status: full code DVT prophylaxis: hold for now
[2019-06-05] MEDS ORDERED: Phytonadione 10 MG/ML AMP PO SCH (12:15)
[2019-06-05] MEDS ORDERED: Sodium Bicarbonate 2.5 MEQ/5 ML VIAL ONE (13:13)
--- NOTE | 2019-06-05 14:03 | PRG ---
DATE OF SERVICE: 06/04/2019 SUBJECTIVE: This is a 43-year-old male with chronic alcohol abuse, alcoholic hepatitis with evidence of decompensation. He has ascites and also cytopenia and prolonged INR/PT. He is deeply jaundiced. He complains of abdominal tightness and also has difficulty breathing. However, he is actually lying down flat. An abdominal sonogram was ordered for possible paracentesis. However, his PT/INR is prolonged. The PT today is 32.2, INR is 3.2, platelet count is 84,000. has been dropping down slowly, but pretty stable at around 7.5, hematocrit 24.7. OBJECTIVE: GENERAL: He is deeply jaundiced. He is awake, alert, and oriented to time, place, and person. VITAL SIGNS: His pulse is 104, blood pressure is 130/78. Afebrile. CARDIOVASCULAR/LUNGS: Within normal limits. ABDOMEN: Slightly firm. Abdomen is nontender. No organomegaly. CLINICAL IMPRESSION: 1. Alcoholic hepatitis with evidence of hepatic decompensation with prolonged PT/INR and thrombocytopenia. 2. Ascites. 3. Acute kidney injury, possible hepatorenal syndrome. My overall impression is he is making good progress except for the ascites than before. Unfortunately, a paracentesis cannot be done because of the prolonged PT/INR. RECOMMENDATIONS: 1. I recommend continue the present treatment. 2. May stop the midodrine from today. 3. May consider fresh frozen plasma . This was conveyed to the patient's fiancee and patient. Job ID: [id number]
[2019-06-05] MEDS: cefTRIAXone\\ROCEPHIN 2 GM in Sodium Chloride 0.9% 100 ML IVPB SCH (14:56)
--- NOTE | 2019-06-05 16:41 | ULT ---
Sonographic guided paracentesis HISTORY: Recurrent ascites. FINDINGS: After explaining the procedure and obtaining informed consent. Sonographic survey shows mod erate amount of free fluid. Sterile technique, buffered local anesthesia, sonographic guidance, and a right lateral approach were used to carefully advance a 19-gauge Yueh needle and catheter into the free fluid. A small amount of bright yellow fluid was removed. Extensive motion by the patient dislodged the catheter. A second catheter was placed using sterile technique. A total volume of 600 cc right yellow liquid was aspirated. Patient was belligerent and combative, an d dislodged the catheter a second time. IMPRESSION: Sonographic guided removal of 600 cc ascites. Patient belligerent and combativeness precl udes further fluid removal. The amount of remaining fluid should not cause clinical symptoms.
[2019-06-05 17:02] LABS: Actual Bicarbonate (HCO3a) 21.7 mEq/L (22-28); Base Excess (BEa) -0.6 mEq/L (-2.0 to +3.0); CO2 Tension 26.5 mmHg (35.0-45.0); Calcium, Ionized 1.11 mmol/L (1.12-1.30); Carboxyhemoglobin (COHb) 3.4 gm% (0.0-3.0); Hemoglobin (Hb) 7.6 g/dL (14.0-18.0); O2 Tension (PaO2) 85.7 mmHg (80.0-100.0); Potassium - ABG Lab 3.58 mmol/L (3.70-5.30); pH, Arterial 7.53 (7.35-7.45)
[2019-06-05 17:05] LABS: ALV-art Gradient 30.905 (0-20); Puncture Site LRA
--- NOTE | 2019-06-05 21:29 | PRG ---
DATE OF SERVICE: 06/05/2019 SUBJECTIVE: Mr. Go is confused. He will arouse and tell me his name, but then is unable to cooperate at all with exam. He will hold his hands up, but would not bend them back to assess for asterixis. He is unable to squeeze my fingers. His mentation is markedly slow. He only had one bowel movement recorded last night and none through the day today. PHYSICAL EXAMINATION: VITAL SIGNS: Temperature 97.8, pulse 109, and blood pressure 158/81. GENERAL: He is in no acute distress, but he is sleepy and confused and clearly encephalopathic. I am unable to really assess for asterixis as he will not squeeze my fingers or bend his wrist back. LUNGS: Clear to auscultation bilaterally. HEART: Tachycardic, S1 and S2 with a 2/6 systolic murmur at the apex. EXTREMITIES: 2+ pitting lower extremity edema. LABORATORY DATA: White blood cell count 13.5, hemoglobin is 7.2, and platelets 76,000. INR 3.3. Bilirubin 24.3, creatinine 1.08, and albumin 2.5. IMPRESSION: 1. Severe acute alcoholic hepatitis. He has been on prednisolone; however, response has been limited to this point. His creatinine at least has improved significantly and is decreased from 2 to 1. 2. Ascites. He did have around 600 mL removed today, but he did not cooperate with the exam and pulled away from the needle. His cell count was negative for SBP back on the 24. An additional fluid was not saved today for further studies. 3. Encephalopathy. This is an acute change today compared to yesterday. He has had no significant stool output with the lactulose. We will give a lactulose enema in addition to oral lactulose now and increase the dosing schedule. 4. Anemia without overt blood loss. He has a recent history of duodenal varices treated in [place]. 5. Chronic hepatitis C. RECOMMENDATIONS: 1. Lactulose enema and oral lactulose. 2. Prednisolone. 3. He had been on octreotide and midodrine and albumin; however, this has since been discontinued and his creatinine has returned back to 1. Job ID: [id number]
[2019-06-05] MEDS ORDERED: Lactulose 10 GM/15 ML Oral Solution PR SCH (21:30)
[2019-06-05] MEDS ORDERED: Lorazepam 2 MG/ML VIAL SLOW IVP SCH (22:30)
[2019-06-05 22:52] LABS: Mean Corpuscular Volume 88.4 fL (78.0-98.0)
[2019-06-05 22:57] LABS: Lactic Acid 2.1 mmol/L (0.5-2.2)
[2019-06-05 23:04] LABS: #Eosinphils 0.1 thou/uL (0.0-0.7); #Lymphocytes 0.3 thou/uL (1.20-3.40); #Monocytes 0.7 thou/uL (0.11-0.59); #Neutrophils 10.7 thou/uL (1.40-6.50); %Basophils 0.4 % (0.0-1.0); %Lymphocytes 2.8 % (21.0-51.0); %Monocytes 6.2 % (0.0-10.0); %Neutrophils 89.5 % (42.0-75.0); Anisocytosis SLIGHT = 6-15 cells (100X) (0-5/hpf); Elliptocytes SLIGHT = 2-5 cells (100X) (0-1/hpf); Hemoglobin 7.9 g/dL (14.0-18.0); MDiff Complete? YES; Mean Corpuscular Hemoglobin 26.5 pg (27.0-31.0); Mean Platelet Volume 7.5 fL (7.4-10.4); Platelet Count 74 thou/uL (130-400); Platelet Morphology Comment Appears Decreased; RBC Distribution Width 18.6 % (11.5-14.5); Red Blood Cell (RBC) Count 2.97 mill/uL (4.70-6.10); Schistocytes SLIGHT = 2-5 cells (100X) (0-1/hpf); White Blood Cell (WBC) Count 11.9 thou/uL (4.8-10.8)
[2019-06-05 23:19] LABS: Bilirubin, Total 26.8 mg/dL (0.2-1.2)
[2019-06-05 23:25] LABS: ALT (SGPT) 75 U/L (8-55); AST (SGOT) 139 U/L (5-34); Albumin 2.6 g/dL (3.5-5.0); Alkaline Phosphatase 112 U/L (40-110); Anion Gap 13 mmol/L (10-20); BUN (Urea Nitrogen) 27 mg/dL (8.9-20.6); Calc. Creatinine Clearance 154 mL/min (70-130); Calcium 8.1 mg/dL (7.8-10.44); Carbon Dioxide 19 mmol/L (22-29); Chloride 106 mmol/L (98-107); Estimated GFR-MDRD 82; Glucose 155 mg/dL (70-105); Potassium 4.2 mmol/L (3.5-5.1); Protein, Total 6.6 g/dL (6.0-8.3); Sodium 134 mmol/L (136-145)
[2019-06-06] MEDS ORDERED: Lorazepam 2 MG/ML VIAL SLOW IVP SCH (01:00)
[2019-06-06 06:32] LABS: Hemoglobin 7.7 g/dL (14.0-18.0); Mean Corpuscular HGB CONC 29.9 g/dL (32.0-36.0); Mean Corpuscular Hemoglobin 26.7 pg (27.0-31.0); Mean Platelet Volume 11.6 fL (7.4-10.4); Platelet Count 87 thou/uL (130-400); RBC Distribution Width 18.5 % (11.5-14.5); Red Blood Cell (RBC) Count 2.88 mill/uL (4.70-6.10); White Blood Cell (WBC) Count 13.8 thou/uL (4.8-10.8)
[2019-06-06 06:35] LABS: Bilirubin, Total 25.9 mg/dL (0.2-1.2)
[2019-06-06 06:37] LABS: ALT (SGPT) 74 U/L (8-55); AST (SGOT) 133 U/L (5-34); Albumin 2.5 g/dL (3.5-5.0); Alkaline Phosphatase 108 U/L (40-110); Anion Gap 13 mmol/L (10-20); BUN (Urea Nitrogen) 28 mg/dL (8.9-20.6); Calc. Creatinine Clearance 145 mL/min (70-130); Carbon Dioxide 19 mmol/L (22-29); Chloride 107 mmol/L (98-107); Estimated GFR-MDRD 79; Glucose 134 mg/dL (70-105); Potassium 4.4 mmol/L (3.5-5.1); Protein, Total 6.5 g/dL (6.0-8.3); Sodium 135 mmol/L (136-145)
--- NOTE | 2019-06-06 10:34 | EKG ---
Test Reason : CP Blood Pressure : / mmHG Vent. Rate : 104 BPM Atrial Rate : 104 BPM P-R Int : 174 ms QRS Dur : 102 ms QT Int : 354 ms P-R-T Axes : 049 041 014 degrees QTc Int : 465 ms Sinus tachycardia Cannot rule out Inferior infarct , age undetermined Abnormal ECG No previous ECGs available Confirmed by AKASH GAINES MD ([id number]) on 06/06/2019 10:34:06 AM Referred By: Confirmed By:AKASH GAINES MD
[2019-06-06] MEDS: Multivit, Therapeutic 1 TAB PO SCH (12:58)
[2019-06-06] MEDS: Folic Acid 1 MG TAB PO SCH (12:58)
[2019-06-06] MEDS: Thiamine 100 MG TAB PO SCH (12:58)
[2019-06-06] MEDS: prednisoLONE 10 MG ODT TAB PO SCH (12:58)
[2019-06-06] MEDS: Pantoprazole 40 MG VIAL IVP SCH ×2 (12:59→20:46)
[2019-06-06] MEDS: cefTRIAXone\\ROCEPHIN 2 GM in Sodium Chloride 0.9% 100 ML IVPB SCH (12:59)
--- NOTE | 2019-06-06 15:41 | PDOC.PALCO ---
Palliative Care Consult - Consult Details Requesting Physician: Dr Urrutia Reason for Consult: advance directives assistance, assistance with communication prognosis/disease Family Members Present: Girlfriend - Pertinent HPI 43 year old male who has alcoholic cirrhosis with portal hypertension that presented to the emergency room 05/27/19 with abdominal discomfort. Patient has had a prior admission to [facility] 3 weeks and was transferred to [facility] for higher level of care related to large duodenal varices and cirrhosis of the liver. Discharged 05/27 from [facility]. Patient was admitted to the hospital for management of cirrhosis, [place], anemia. - Pertinent PMH Alcoholic cirrhosis with portal hypertension, coagulopathy, alcohol abuse, gi bleed, chronic hepatitis C - Social History Alcohol Use: heavy Living Situation: with partner - Allergies Allergies/Adverse Reactions: Allergies Allergy/AdvReac Type Severity Reaction Status Date / Time No Known Allergies Allergy Unverified 05/12/19 14:40 - Subjective Sleeping but arousable. Oriented, tearful and delayed in response. Complains of general abdominal discomfort. - Objective Vital Signs: Vital Signs - Most Recent Temp Pulse Resp BP Pulse Ox 98.3 F 118 H 22 H 147/83 H 97 06/06/19 10:00 06/06/19 10:00 06/06/19 10:00 06/06/19 10:00 06/06/19 10:00 Palliative Performance Scale: 40 - Physical Exam Constitutional: moderate distress Deviation from normal: icteric sclera Respiratory: tachypnea Cardiovascular: RRR Deviation from normal: Abdominal distension, acites Musculoskeletal: pulses present, edema present Neurological: moves all 4 limbs Deviation from normal: aggitated, delayed response. alert Skin: cap refill <2 seconds - Problem List (1) Palliative care encounter Code(s): Z51.5 - ENCOUNTER FOR PALLIATIVE CARE Current Visit: Yes Status: Acute (2) Ascites Code(s): R18.8 - OTHER ASCITES Current Visit: Yes Status: Acute (3) Alcoholic hepatitis Code(s): K70.10 - ALCOHOLIC HEPATITIS WITHOUT ASCITES Current Visit: No Status: Acute - Plan/Recommendations Plan: Met with patient and his girlfriend. Patient thought pattern delayed, tearful. Patient desires to have his sister be his MPOA and his oldest son Ray. Discussed at length seriousness of condition and limited options for treatment. Both patient and girlfriend appear to have difficulty in retaining and comprehending the grave condition of patient, this was assessed in a teach back method. *Palliative Care will follow up 06/07 for teaching with family using the jewel bearing grinder in relation to current chronic condition *Will provide girlfriend with Asaf information and resources *Suggest to use Fentanyl IVP or methadone if current pain medication not relieving pain. Communicated with Dr Ghada Gray RN and I to continue to follow to discuss goal of care with patient. [75] minutes spent on this encounter with >50% of the time in counseling and coordination of care. Thank you for this very appropriate consult.
--- NOTE | 2019-06-06 16:30 | PRG ---
DATE OF SERVICE: 06/06/2019 SUBJECTIVE: Mr. Go had a good response to lactulose enema and now to oral lactulose, which he is tolerating today. He has had multiple loose bowel movements. His mentation is evidently much better than yesterday. He is able to have a conversation with me. He is actually denying any pain. No abdominal pain at this time. He has been tolerating his diet. He says he feels more energetic. He has been tearful. OBJECTIVE: VITAL SIGNS: Temperature 98.3, pulse 118, blood pressure 147/83, and 97% oxygen saturation on room. GENERAL: He is jaundiced, tearful, but alert and able to answer questions and follow commands. HEART: Regular, tachycardia. LUNGS: Clear to auscultation bilaterally. ABDOMEN: Distended with ascites, not tense. Bowel sounds present. Soft and nontender to palpation. EXTREMITIES: No peripheral edema. LABORATORY STUDIES: WBC is 13.8, hemoglobin stable at 7.7, platelets stable at 87. INR 3.3. Sodium 135, potassium 4.4, BUN 28, creatinine 1.04. Total bilirubin stable at 25.9, alkaline phosphatase 108, AST is 133, ALT is 74, albumin 2.5. Paracentesis fluid studies from admission on 06/01/2019, showed 173 WBCs, only 2% neutrophils. Unfortunately, fluid studies were not sent from paracentesis performed yesterday. Admission blood cultures from 05/31/2019 are negative. Ascites fluid culture from 06/01/2019 showed no growth after 5 days. ASSESSMENT AND PLAN: 1. Severe alcoholic hepatitis. The patient continues on prednisolone 40 mg daily, with only limited response to this point. He did have some improvement in renal function, which is stable today. Prognosis remains grave. 2. Ascites. Initial fluid studies were negative for SBP. Evidently, fluid did not get sent for repeat studies on repeat paracentesis yesterday. Given his continued mild leukocytosis, it is reasonable to continue the antibiotics. I would just have him on a 7-day course of antibiotics, switch to oral ciprofloxacin upon hospital discharge. 3. Encephalopathy. This was evidently severe yesterday. He has responded well to lactulose. I would continue oral lactulose, given at least 3 times per day. 4. Anemia. This is stable. 5. Duodenal varices. These were evidently treated with glue injection recently at [facility] in [place]. 6. Chronic hepatitis C. Currently not a candidate for antiviral treatment with such decompensation of cirrhosis and ongoing active alcoholic hepatitis. I discussed with the patient and his significant other that his prognosis remains grave, though everything looks stable today. Prednisolone will need to be completed for a 28-day course. We will continue to monitor CMP, CBC, and INR on a daily basis. Continue with the low-sodium diet. Diuretics could be cautiously started at this point. Job ID: [id number]
--- NOTE | 2019-06-06 17:54 | PDOC.HOSPP ---
- Subjective Encounter Date: 06/06/19 Encounter Time: 16:00 Subjective: The patient appears tearful upon evaluation, states he is praying for his life. He has no abdominal pain. He reports having 8 bowel movements a day. He denies nausea or vomiting. Wants another paracentesis, doesn't remember that he pulled the needle out of him yesterday - Objective Vital Signs & Weight: Vital Signs (12 hours) Temp Pulse Resp BP Pulse Ox 06/06/19 10:00 98.3 F 118 H 22 H 147/83 H 97 Weight Admit Weight 242 lb 3.2 oz Weight 242 lb 3.2 oz I&O: 06/05/19 06/06/19 06/07/19 06:59 06:59 06:59 Intake Total 1485 Balance 1485 Result Diagrams: 06/06/19 05:39 06/06/19 05:39 Hospitalist ROS - Review of Systems Constitutional: denies: fever, chills - Medication Medications: Active Medications Generic Name Dose Route Start Last Admin Trade Name Freq PRN Reason Stop Dose Admin Folic Acid 1 mg 06/01/19 09:00 06/06/19 12:58 Folvite PO 1 mg DAILY GIN Administration Dextrose/Sodium Chloride 1,000 mls @ 75 mls/hr 06/03/19 21:15 06/04/19 02:49 D5 0.9% Ns IV Not Given .[id number] GIN Ceftriaxone Sodium 2 gm/ 100 mls @ 200 mls/hr 06/05/19 12:30 06/06/19 12:59 Sodium Chloride IVPB 100 mls Q24HR GIN Administration Lactulose 20 gm 06/05/19 21:00 06/06/19 15:21 Lactulose PO Not Given TID GIN Multivitamins 1 tab 06/01/19 09:00 06/06/19 12:58 Theragran PO 1 tab DAILY GIN Administration Pantoprazole Sodium 40 mg 06/01/19 09:00 06/06/19 12:59 Protonix IVP 40 mg Q12HR GIN Administration Prednisolone 40 mg 06/02/19 09:00 06/06/19 12:58 Orapred Odt PO 40 mg DAILY GIN Administration Sodium Chloride 10 ml 05/31/19 23:58 06/05/19 08:55 Flush - Normal Saline IVF 10 ml PRN PRN Administration Saline Flush Thiamine HCl 100 mg 06/01/19 09:00 06/06/19 12:58 Thiamine PO 100 mg DAILY GIN Administration - Exam General Appearance: NAD, awake alert Eye: PERRL, anicteric sclera ENT: normocephalic atraumatic, no oropharyngeal lesions Neck: supple, symmetric, no JVD Heart: RRR, no murmur, no gallops, no rubs Respiratory: CTAB, no wheezes, no rales, no ronchi, normal percussion Gastrointestinal: soft, non-tender, non-distended Extremities: no cyanosis, no clubbing, no edema Skin: normal turgor, no lesions, no rashes Skin - other findings: jaundice Neurological: cranial nerve grossly intact, normal sensation to touch, no focal deficits, no new deficit Musculoskeletal: normal tone, no muscle wasting Psychiatric: normal affect, normal behavior, A&O x 3 Hosp A/P - Plan Abdominal ultrasound 06/01: liver cirrhosis, splenomegaly, ascites, GB sludge, hemangiomas Chest X ray 06/01: no acute disease Abd Ultrasound 06/03: moderate ascites This is 43 year old male with cirrhosis who presented with decompensated cirrhosis # Acute encephalopathy likely hepatic #Decompensated Cirrhosis #Hepatorenal Syndrome #Acute kidney Injury - resolved # Transaminitis - LFT stable. S/p paracentesis with 1L drawn out on 06/01. SBP ruled out on initial paracentesis. Repeat paracentesis done but only 600 mL was able to be done because patient pulled out needle - octreotide discontinued. Prednisolone continue for four weeks - continue midodrine - continue lactulose, titrate to 3 bowel movements daily - start lasix 20 mg IV bid, monitor renal function #Leukocytosis - possible SBP? - WBC increased to 13.8 , blood cultures negative. - started IV ceftriaxone 06/05, continue for 7 days. switch to ciprofloxacin on discharge #Anemia - improved, hemoglobin down to 7.2, continue to monitor - check iron panel, B12 and folate #Hyponatremia - improving - sodium improved to 135 Dispo: continue lactulose treatment for encephalopathy. If encephalopathy resolves attempt another paracentesis later in the week Code status: full code DVT prophylaxis: hold for now
[2019-06-06] MEDS ORDERED: Furosemide 20 MG/2 ML VIAL SLOW IVP SCH (18:00)
[2019-06-07] MEDS: Dicyclomine 10 MG CAP PO PRN ×3 (00:49→19:56)
[2019-06-07 05:37] LABS: INR-International Normal Ratio 3.4; Prothrombin Time 33.8 SEC (12.0-14.7)
[2019-06-07 06:11] LABS: Iron 18 ug/dL (65-175); Iron Binding Capacity, Total 148 mcg/dL (261-462)
[2019-06-07 06:25] LABS: Ferritin 35.36 ng/mL (22-322)
[2019-06-07 06:32] LABS: ALT (SGPT) 76 U/L (8-55); AST (SGOT) 122 U/L (5-34); Albumin 2.5 g/dL (3.5-5.0); Alkaline Phosphatase 128 U/L (40-110); Anion Gap 13 mmol/L (10-20); BUN (Urea Nitrogen) 27 mg/dL (8.9-20.6); Bilirubin, Total 24.2 mg/dL (0.2-1.2); Calc. Creatinine Clearance 126 mL/min (70-130); Calcium 7.7 mg/dL (7.8-10.44); Carbon Dioxide 20 mmol/L (22-29); Chloride 105 mmol/L (98-107); Estimated GFR-MDRD 67; Globulin 3.8 g/dL (2.4-3.5); Glucose 145 mg/dL (70-105); Iron 19 ug/dL (65-175); Iron Binding Capacity, Total 145 mcg/dL (261-462); Potassium 3.9 mmol/L (3.5-5.1); Protein, Total 6.3 g/dL (6.0-8.3); Sodium 134 mmol/L (136-145)
[2019-06-07 06:36] LABS: Vitamin B12 Greater than 2000 pg/mL (211-911)
[2019-06-07 06:43] LABS: #Eosinphils 0.1 thou/uL (0.0-0.7); #Lymphocytes 0.7 thou/uL (1.20-3.40); #Monocytes 1.7 thou/uL (0.11-0.59); #Neutrophils 13.2 thou/uL (1.40-6.50); %Basophils 0.1 % (0.0-1.0); %Eosinophils 0.6 % (0.0-10.0); %Lymphocytes 4.5 % (21.0-51.0); %Monocytes 10.7 % (0.0-10.0); %Neutrophils 84.2 % (42.0-75.0); Hemoglobin 7.2 g/dL (14.0-18.0); Hypochromia SLIGHT = 6-15 cells (100X) (0-5/hpf); MDiff Complete? YES; Mean Corpuscular Hemoglobin 26.3 pg (27.0-31.0); Mean Corpuscular Volume 87.7 fL (78.0-98.0); Mean Platelet Volume 10.3 fL (7.4-10.4); Platelet Count 87 thou/uL (130-400); Platelet Morphology Comment Appears Decreased; RBC Distribution Width 18.5 % (11.5-14.5); Red Blood Cell (RBC) Count 2.75 mill/uL (4.70-6.10); Schistocytes SLIGHT = 2-5 cells (100X) (0-1/hpf); Target Cells MODERATE= 6-15 cells (100X) (0-1/hpf); White Blood Cell (WBC) Count 15.7 thou/uL (4.8-10.8)
[2019-06-07] MEDS: Folic Acid 1 MG TAB PO SCH (08:35)
[2019-06-07] MEDS: Proctozone-HC 2.5% Cream 30 GM TUBE TOP SCH ×2 (08:36→23:36)
[2019-06-07] MEDS: Furosemide 20 MG/2 ML VIAL SLOW IVP SCH ×2 (08:36→23:32)
[2019-06-07] MEDS: Multivit, Therapeutic 1 TAB PO SCH (08:37)
[2019-06-07] MEDS: Thiamine 100 MG TAB PO SCH (08:37)
[2019-06-07] MEDS: prednisoLONE 10 MG ODT TAB PO SCH (08:38)
[2019-06-07] MEDS: Pantoprazole 40 MG VIAL IVP SCH ×2 (08:55→23:31)
[2019-06-07] MEDS ORDERED: Iron, Sodium Ferric Gluconate 250 MG in Sodium Chloride 0.9% 250 ML 250 ML IVPB SCH (11:00)
--- NOTE | 2019-06-07 12:14 | PDOC.PALPN ---
Palliative Progress Note - Subjective Awake, alert. Complains of mud upper abdominal pain, non radiating at scored at a 7 on a 1-10 scale. ROS: 10 point review otherwise negative than above mentioned - Objective Vital Signs: Vital Signs - Most Recent Temp Pulse Resp BP Pulse Ox 97.9 F 107 H 20 129/75 100 06/07/19 08:30 06/07/19 08:30 06/07/19 08:30 06/07/19 08:30 06/07/19 08:30 - Physical Exam Constitutional: mild distress Deviation from normal: alert and oriented Deviation from normal: icteric sclera Deviation from normal: mildly labored with speech/activity Cardiovascular: RRR Deviation from normal: significant distnesion, tympani Neurological: moves all 4 limbs Psychiatric: A&O x 3 Deviation from normal: Hopeful Skin: cap refill <2 seconds Deviation from normal: generalized icteric appearance - Assessment (1) Palliative care encounter Code(s): Z51.5 - ENCOUNTER FOR PALLIATIVE CARE Current Visit: Yes Status: Acute (2) Ascites Code(s): R18.8 - OTHER ASCITES Current Visit: Yes Status: Acute (3) Alcoholic hepatitis Code(s): K70.10 - ALCOHOLIC HEPATITIS WITHOUT ASCITES Current Visit: No Status: Acute - Plan Plan: Jami Gray RNindustrial garage servicer also present, confirmed MPOA to be patient sister. Family coming to see patient Continued education in relation to disease process/family may benefit with family meeting when sister and other family member present who are coming from out of town Patient and girlfriend to be provided with information on local and [facility] meetings Patient agreeable to meet with men from AA to discuss alcoholism and measures to mitigate drinking Abdominal pain has been improved with Bentyl, will reassess if not positively impacting pain and discomfort. [45] minutes spent on this encounter with >50% of the time in counseling and coordination of care.
[2019-06-07] MEDS: cefTRIAXone\\ROCEPHIN 2 GM in Sodium Chloride 0.9% 100 ML IVPB SCH (15:21)
--- NOTE | 2019-06-07 17:04 | PRG ---
DATE OF SERVICE: 06/07/2019 SUBJECTIVE: Mr. Go is feeling about the same today. He has some uncomfortable abdominal distention, but no shortness of breath. He has been having multiple loose bowel movements with the lactulose. Mental status has been good. He has been tolerating his diet. OBJECTIVE: VITAL SIGNS: Temperature 98.1, pulse 108, blood pressure 134/74, and 98% oxygen saturation on room air. GENERAL: Jaundiced, no acute distress. HEART: Regular rate and rhythm. LUNGS: Clear to auscultation bilaterally. ABDOMEN: Distended, not tense. Bowel sounds are present. Soft and nontender to palpation. EXTREMITIES: 1+ bilateral lower extremity edema. LABORATORY STUDIES: Hemoglobin 7.2, WBC up to 15.7, and platelets 87. INR is up to 3.4. Sodium 134, potassium 3.9, BUN 27, creatinine 1.19, calcium 7.7, iron 19, TIBC 145, and ferritin 35.36. Total bilirubin is centrally stable at 24.2, alkaline phosphatase 128, AST 122, ALT 76, and albumin 2.5. Vitamin B12 is greater than 2000, folate 16. ASSESSMENT/PLAN: 1. Severe alcoholic hepatitis. The patient continues on prednisolone 40 mg daily, continue this for a total of 28 days. Overall prognosis remains grave, but labs are essentially stable today. 2. Ascites. Initial fluid studies negative for spontaneous bacterial peritonitis. There still no fever, though he does continue to have leukocytosis, is reasonable to continue the antibiotics for a 7-day course as outlined yesterday. 3. Encephalopathy. This was severe 2 days ago. He responded well to lactulose. Continue the oral lactulose, titrate to 2 to 3 loose bowel movements per day. 4. Anemia. This is overall stable. No evidence of active bleeding. 5. Duodenal varices. These were evidently treated with glue injection recently at [facility] in [place]. Continue with low-sodium diet. Agree with the IV Lasix started cautiously for now. Titrate up diuretics if renal function tolerates. Job ID: [id number]
--- NOTE | 2019-06-07 17:31 | PDOC.HOSPP ---
- Subjective Encounter Date: 06/07/19 Encounter Time: 16:00 Subjective: The patient is much more alert today. Abdominal pain is better with bentyl. Patient is having regular bowel movements. Patient is requesting to try a paracentesis again since mental status is better. Appears more calm. - Objective Vital Signs & Weight: Vital Signs (12 hours) Temp Pulse Resp BP BP Pulse Ox 06/07/19 16:00 98 F 105 H 20 150/84 H 96 06/07/19 12:00 98.1 F 108 H 16 134/74 98 06/07/19 08:30 97.9 F 107 H 20 129/75 100 Weight Admit Weight 242 lb 3.2 oz Weight 241 lb 1.6 oz I&O: 06/06/19 06/07/19 06/08/19 06:59 06:59 06:59 Intake Total 800 Balance 800 Result Diagrams: 06/07/19 05:01 06/07/19 05:01 Hospitalist ROS - Review of Systems Constitutional: denies: fever, chills - Medication Medications: Active Medications Generic Name Dose Route Start Last Admin Trade Name Freq PRN Reason Stop Dose Admin Dicyclomine HCl 10 mg 06/06/19 23:05 06/07/19 09:02 Bentyl PO 10 mg QIDPRN PRN Administration Pain Folic Acid 1 mg 06/01/19 09:00 06/07/19 08:35 Folvite PO 1 mg DAILY GIN Administration Furosemide 20 mg 06/07/19 09:00 06/07/19 08:36 Lasix SLOW IVP 20 mg BID GIN Administration Hydrocortisone Sodium Succinate 0 gm 06/07/19 09:00 06/07/19 08:36 Proctozone-Hc 2.5% Cream TOP 1 applic BID GIN Administration Dextrose/Sodium Chloride 1,000 mls @ 75 mls/hr 06/03/19 21:15 06/04/19 02:49 D5 0.9% Ns IV Not Given .[id number] GIN Ceftriaxone Sodium 2 gm/ 100 mls @ 200 mls/hr 06/05/19 12:30 06/07/19 15:21 Sodium Chloride IVPB 100 mls Q24HR GIN Administration Lactulose 20 gm 06/05/19 21:00 06/07/19 15:21 Lactulose PO 20 gm TID GIN Administration Multivitamins 1 tab 06/01/19 09:00 06/07/19 08:37 Theragran PO 1 tab DAILY GIN Administration Pantoprazole Sodium 40 mg 06/01/19 09:00 06/07/19 08:55 Protonix IVP 40 mg Q12HR GIN Administration Prednisolone 40 mg 06/02/19 09:00 06/07/19 08:38 Orapred Odt PO 40 mg DAILY GIN Administration Sodium Chloride 10 ml 05/31/19 23:58 06/05/19 08:55 Flush - Normal Saline IVF 10 ml PRN PRN Administration Saline Flush Thiamine HCl 100 mg 06/01/19 09:00 06/07/19 08:37 Thiamine PO 100 mg DAILY GIN Administration - Exam General Appearance: NAD, awake alert Eye: PERRL, scleral icterus ENT: normocephalic atraumatic, no oropharyngeal lesions, dry oral mucosa Neck: supple, symmetric, no JVD, no thyromegaly Heart: RRR, no murmur, no gallops, no rubs Respiratory: CTAB, no wheezes, no rales, no ronchi Gastrointestinal: soft, normal bowel sounds Gastrointestinal - other findings: abdomen more distended with ascites Extremities: no cyanosis, no clubbing, no edema Skin: normal turgor, no lesions, no rashes Neurological: cranial nerve grossly intact, normal sensation to touch, no focal deficits, no new deficit Musculoskeletal: normal tone, normal strength, no muscle wasting Psychiatric: normal affect, normal behavior, A&O x 3, oriented to person Hosp A/P - Plan Abdominal ultrasound 06/01: liver cirrhosis, splenomegaly, ascites, GB sludge, hemangiomas Chest X ray 06/01: no acute disease Abd Ultrasound 06/03: moderate ascites This is 43 year old male with cirrhosis who presented with decompensated cirrhosis # Acute hepatic encephalopathy #Acute liver failure secondary to decompensated Cirrhosis #Hepatorenal Syndrome #Acute kidney Injury - resolved # Transaminitis - LFT stable. S/p paracentesis with 1L drawn out on 06/01. SBP ruled out on initial paracentesis. Repeat paracentesis done but only 600 mL was able to be done because patient pulled out needle on the . Will order another paracentesis for tomorrow, check coags - octreotide discontinued, will d/c midodrine. Continue prednisolone - continue lactulose, titrate to 3 bowel movements daily - start lasix 20 mg IV bid, creatinine slightly increasing will monitor renal function. - MELD score 34, patient was evaluated for liver transplant in [place] but hasn' t been sober for long enough #Leukocytosis - possible SBP? - WBC increased to 15.7, but clinically patient improved - started IV ceftriaxone 06/05, continue for 7 days. Switch to ciprofloxacin on discharge for a week - will monitor #Anemia - improved, hemoglobin down to 7.2, continue to monitor - B12, folate normal. Ferritin normal, TIBC low, iron sat 12. #Hyponatremia - improving - sodium improved to 135 Dispo: attempt another paracentesis tomorrow if possible Code status: full code DVT prophylaxis: hold for now
[2019-06-08] MEDS ORDERED: Ibuprofen 200 MG TAB PO SCH (01:30)
[2019-06-08] MEDS: Melatonin 3 MG TAB PO PRN ×2 (01:33→22:13)
[2019-06-08] MEDS: Dicyclomine 10 MG CAP PO PRN ×4 (01:40→22:11)
[2019-06-08 06:17] LABS: Hemoglobin 7.4 g/dL (14.0-18.0); Mean Corpuscular HGB CONC 29.9 g/dL (32.0-36.0); Mean Corpuscular Hemoglobin 26.1 pg (27.0-31.0); Mean Corpuscular Volume 87.4 fL (78.0-98.0); Mean Platelet Volume 12.3 fL (7.4-10.4); Platelet Count 87 thou/uL (130-400); RBC Distribution Width 18.7 % (11.5-14.5); Red Blood Cell (RBC) Count 2.84 mill/uL (4.70-6.10); White Blood Cell (WBC) Count 17.4 thou/uL (4.8-10.8)
[2019-06-08 06:34] LABS: ALT (SGPT) 85 U/L (8-55); AST (SGOT) 134 U/L (5-34); Albumin 2.4 g/dL (3.5-5.0); Alkaline Phosphatase 125 U/L (40-110); Anion Gap 14 mmol/L (10-20); BUN (Urea Nitrogen) 31 mg/dL (8.9-20.6); Bilirubin, Total 22.8 mg/dL (0.2-1.2); Calc. Creatinine Clearance 66 mL/min (70-130); Calcium 7.8 mg/dL (7.8-10.44); Carbon Dioxide 21 mmol/L (22-29); Chloride 103 mmol/L (98-107); Estimated GFR-MDRD 55; Globulin 3.8 g/dL (2.4-3.5); Glucose 109 mg/dL (70-105); Potassium 3.7 mmol/L (3.5-5.1); Protein, Total 6.2 g/dL (6.0-8.3); Sodium 134 mmol/L (136-145)
[2019-06-08 06:35] LABS: INR-International Normal Ratio 3.4; Prothrombin Time 33.9 SEC (12.0-14.7)
[2019-06-08] MEDS: Furosemide 20 MG/2 ML VIAL SLOW IVP SCH (09:38)
[2019-06-08] MEDS: Multivit, Therapeutic 1 TAB PO SCH (09:38)
[2019-06-08] MEDS: Folic Acid 1 MG TAB PO SCH (09:38)
[2019-06-08] MEDS: Thiamine 100 MG TAB PO SCH (09:38)
[2019-06-08] MEDS: prednisoLONE 10 MG ODT TAB PO SCH (09:43)
[2019-06-08] MEDS: Pantoprazole 40 MG VIAL IVP SCH ×2 (09:44→20:08)
[2019-06-08] MEDS ORDERED: Sodium Bicarbonate 2.5 MEQ/5 ML VIAL ONE (09:47)
--- NOTE | 2019-06-08 11:17 | ULT ---
US Paracentesis with Imaging History: Severe ascites Comparison: Ultrasound-guided paracentesis June 05, 2019 Findings: Patient was brought to the ultrasound suite. All questions were answered. Informed consent was obtained. Timeout performed. Patient's right lower quadrant was prepped and draped in normal sterile fashion. Using ultrasound beth dance after adequate local anesthesia a 5 Lithuanian catheter was placed with tip in the intraperitoneal space. 3.9 L of yellow-colored ascites was removed. The patient tolerated the procedu re well without complication. Impression: Technically successful ultrasound-guided paracentesis.
[2019-06-08] MEDS: Proctozone-HC 2.5% Cream 30 GM TUBE TOP SCH (11:48)
--- NOTE | 2019-06-08 12:18 | PRG ---
DATE OF SERVICE: 06/08/2019 SUBJECTIVE: Mr. Go is a bit more tired today. He underwent paracentesis earlier this morning with removal of 3.9 L of fluid. Fluid studies have been recent and are pending. He has had some ongoing abdominal discomfort, some relief with Bentyl. He is tolerating his diet. OBJECTIVE: VITAL SIGNS: Temperature 98.5, pulse rate 103, blood pressure 149/70, and 98% oxygen saturation on room air. GENERAL: Jaundiced, resting comfortably, in no acute distress. HEART: Regular. Borderline tachycardia. LUNGS: Clear to auscultation bilaterally. ABDOMEN: Distended, but less tense, nontender to palpation. EXTREMITIES: Trace pretibial edema bilaterally. LABORATORY STUDIES: WBC up to 17.4, hemoglobin 7.4, and platelets are 87. INR is stable at 3.4. Sodium 134, potassium 3.7, BUN up to 31, creatinine is up slightly to 1.41, glucose 109, total bilirubin 22.8, alkaline phosphatase 125, AST 134, and ALT 85. ASSESSMENT/PLAN: 1. Severe alcoholic hepatitis. Continue on prednisolone for a 28-day course. Overall prognosis remains grave. 2. Renal insufficiency. Creatinine has bumped up to 1.4 today, a bad prognostic sign. Continue to follow renal function. If it continues to worsen, may have to back off the diuretics again and callback Nephrology. 3. Encephalopathy. This now appears stable on oral lactulose. 4. Anemia. Overall stable. 5. Duodenal varices. These were evidently treated with glue injection recently at [facility] in [place]. Job ID: [id number]
[2019-06-08] MEDS: cefTRIAXone\\ROCEPHIN 2 GM in Sodium Chloride 0.9% 100 ML IVPB SCH (14:10)
[2019-06-08 14:37] LABS: RBC Count-Automated (BF) 86 /cumm; WBC/Nucleated-Auto (BF) 143 uL
[2019-06-08 14:38] LABS: BF Color Yellow; Body Fluid Source Ascites Body Fluid; Clarity Clear (Clear)
[2019-06-08 14:39] LABS: Tube # EDTA
[2019-06-08 15:04] LABS: BF Segmented Neutrophils 4 %; Cell Count Non Hematic 64 %; Eosinophils 1 %; Lymphocytes 31 %
--- NOTE | 2019-06-08 15:57 | PDOC.PALFU ---
Palliative Care Follow-up Note Patient is more comfortable today, was able to eat and denies nausea/vomiting. Over 3 liters were removed from patient abdomen 06/07. States less short of breath and pain has improved. Although thought pattern delayed oriented x 3. Revisited main symptom management is abstinence from alcohol. Attempted to do a "teach back" to assess for level of understanding of condition but patient tired , will attempt again tomorrow and revisit goals of care.
[2019-06-08] MEDS: Ondansetron ODT 4 MG TAB PO PRN (17:20)
--- NOTE | 2019-06-08 18:25 | PDOC.HOSPP ---
- Subjective Encounter Date: 06/08/19 Encounter Time: 14:00 Subjective: The patient states he had severe abdominal pain overnight and was restless. He had paracentesis done with 4L removed. His abdominal pain has gone. No nauesa or vomiting. He denies shortness of breath. He hasn't had bowel movement today yet per nurse - Objective Vital Signs & Weight: Vital Signs (12 hours) Temp Pulse Resp BP BP Pulse Ox 06/08/19 16:31 98.1 F 102 H 20 127/66 06/08/19 11:23 98.5 F 103 H 22 H 149/70 H 98 06/08/19 09:00 97.8 F 103 H 22 H 135/72 96 06/08/19 07:28 96 Weight Admit Weight 242 lb 3.2 oz Weight 249 lb 12.8 oz I&O: 06/07/19 06/08/19 06/09/19 06:59 06:59 06:59 Intake Total 800 1590 Balance 800 1590 Result Diagrams: 06/08/19 05:58 06/08/19 05:57 Hospitalist ROS - Review of Systems Constitutional: denies: fever, chills - Medication Medications: Active Medications Generic Name Dose Route Start Last Admin Trade Name Freq PRN Reason Stop Dose Admin Dicyclomine HCl 10 mg 06/06/19 23:05 06/08/19 16:32 Bentyl PO 10 mg QIDPRN PRN Administration Pain Folic Acid 1 mg 06/01/19 09:00 06/08/19 09:38 Folvite PO 1 mg DAILY GIN Administration Hydrocortisone Sodium Succinate 0 gm 06/07/19 09:00 06/08/19 11:48 Proctozone-Hc 2.5% Cream TOP Not Given BID GIN Dextrose/Sodium Chloride 1,000 mls @ 75 mls/hr 06/03/19 21:15 06/04/19 02:49 D5 0.9% Ns IV Not Given .[id number] GIN Ceftriaxone Sodium 2 gm/ 100 mls @ 200 mls/hr 06/05/19 12:30 06/08/19 14:10 Sodium Chloride IVPB 100 mls Q24HR GIN Administration Lactulose 20 gm 06/05/19 21:00 06/08/19 14:11 Lactulose PO 20 gm TID GIN Administration Melatonin 3 mg 06/08/19 01:21 06/08/19 01:33 Melatonin PO 3 mg HS PRN Administration Insomnia Multivitamins 1 tab 06/01/19 09:00 06/08/19 09:38 Theragran PO 1 tab DAILY GIN Administration Ondansetron HCl 4 mg 05/31/19 23:58 06/08/19 17:20 Zofran Odt PO 4 mg Q6H PRN Administration Nausea/Vomiting Pantoprazole Sodium 40 mg 06/01/19 09:00 06/08/19 09:44 Protonix IVP 40 mg Q12HR GIN Administration Prednisolone 40 mg 06/02/19 09:00 06/08/19 09:43 Orapred Odt PO 40 mg DAILY GIN Administration Sodium Chloride 10 ml 05/31/19 23:58 06/05/19 08:55 Flush - Normal Saline IVF 10 ml PRN PRN Administration Saline Flush Thiamine HCl 100 mg 06/01/19 09:00 06/08/19 09:38 Thiamine PO 100 mg DAILY GIN Administration - Exam General Appearance: NAD, awake alert Eye: PERRL, scleral icterus ENT: normocephalic atraumatic, no oropharyngeal lesions Neck: supple, symmetric, no JVD Heart: RRR, no murmur, no gallops, no rubs Respiratory: CTAB, no wheezes, no rales, no ronchi Gastrointestinal: soft Gastrointestinal - other findings: abdomen less distended, soft Skin - other findings: jaundice Neurological: cranial nerve grossly intact, normal sensation to touch, no focal deficits, no new deficit Musculoskeletal: normal tone, normal strength, no muscle wasting Psychiatric: normal affect, normal behavior, A&O x 3, oriented to person Hosp A/P - Plan Abdominal ultrasound 06/01: liver cirrhosis, splenomegaly, ascites, GB sludge, hemangiomas Chest X ray 06/01: no acute disease Abd Ultrasound 06/03: moderate ascites This is 43 year old male with cirrhosis who presented with decompensated cirrhosis # Acute hepatic encephalopathy #Acute liver failure secondary to decompensated Cirrhosis #Hepatorenal Syndrome #Acute kidney Injury - resolved # Transaminitis - LFT stable. S/p paracentesis with 1L drawn out on 06/01. SBP ruled out on initial paracentesis. Repeat paracentesis done 06/05 but only 600 mL was able to be done. Another paracentesis was done on 06/08 with 4L drawn out, no signs of SBP - octreotide and midodrine discontinued Continue prednisolone - continue lactulose, titrate to 3 bowel movements daily - d/c lasix due to worsening kidney function #Leukocytosis - - WBC increased to 17, on treatment for empiric SBP with IV ceftriaxone due to encephalopathy 06/05. Continue for 7 days, cipro on discharge #Anemia - improved, hemoglobin down to 7.4, continue to monitor - B12, folate normal. Ferritin normal, TIBC low, iron sat 12. #Hyponatremia - improving - sodium improved to 134 Dispo: re-evaluate kidney function tomorrow, monitor off lasix Code status: full code DVT prophylaxis: hold for now
[2019-06-08] MEDS: Calcium Carbonate 500 MG ChewTAB PO PRN (20:07)
[2019-06-09] MEDS: Ondansetron ODT 4 MG TAB PO PRN (00:10)
[2019-06-09] MEDS: Calcium Carbonate 500 MG ChewTAB PO PRN ×2 (00:11→10:28)
[2019-06-09] MEDS: Proctozone-HC 2.5% Cream 30 GM TUBE TOP SCH ×3 (01:27→20:17)
[2019-06-09 04:51] VITALS: BMI 34.0
[2019-06-09 04:55] LABS: Hemoglobin 7.4 g/dL (14.0-18.0); Mean Corpuscular HGB CONC 29.8 g/dL (32.0-36.0); Mean Corpuscular Volume 87.1 fL (78.0-98.0); Mean Platelet Volume 12.6 fL (7.4-10.4); Platelet Count 99 thou/uL (130-400); RBC Distribution Width 19.2 % (11.5-14.5); Red Blood Cell (RBC) Count 2.84 mill/uL (4.70-6.10)
[2019-06-09 05:09] LABS: ALT (SGPT) 93 U/L (8-55); AST (SGOT) 145 U/L (5-34); Albumin 2.2 g/dL (3.5-5.0); Alkaline Phosphatase 132 U/L (40-110); Anion Gap 12 mmol/L (10-20); BUN (Urea Nitrogen) 37 mg/dL (8.9-20.6); Bilirubin, Total 20.5 mg/dL (0.2-1.2); Calc. Creatinine Clearance 115 mL/min (70-130); Calcium 7.6 mg/dL (7.8-10.44); Carbon Dioxide 21 mmol/L (22-29); Chloride 102 mmol/L (98-107); Estimated GFR-MDRD 58; Globulin 3.7 g/dL (2.4-3.5); Glucose 108 mg/dL (70-105); Potassium 4.1 mmol/L (3.5-5.1); Protein, Total 5.9 g/dL (6.0-8.3); Sodium 131 mmol/L (136-145)
[2019-06-09] MEDS: Dicyclomine 10 MG CAP PO PRN ×3 (09:09→22:36)
[2019-06-09] MEDS: Thiamine 100 MG TAB PO SCH (09:11)
[2019-06-09] MEDS: prednisoLONE 10 MG ODT TAB PO SCH (09:11)
[2019-06-09] MEDS: Multivit, Therapeutic 1 TAB PO SCH (09:11)
[2019-06-09] MEDS: Folic Acid 1 MG TAB PO SCH (09:12)
[2019-06-09] MEDS: Pantoprazole 40 MG VIAL IVP SCH ×2 (09:12→20:17)
--- NOTE | 2019-06-09 09:57 | PDOC.PALF ---
Purpose of Conference: Discuss disease trajectory, risks associated, and resuscitation status. Have patient clarify for PAMELA (his sister) his specific wishes Care Providers Present: Brett Kaplan RN, Dr Urrutia for a portion of meeting Family Members Present: Patient mother, three sisters, eldest son and his girlfriend as well as patient. Meeting Comments: Education to risks related to liver disease and kidney disease and possible outcomes. Multiple questions in relation to platelet counts, risk for infection, recurrent paracentesis. Family and patient asking if he can travel to [place]. Discussed resuscitation status. Goals of Care: Goal remains to attempt to have the ability to be on a liver transplant list. Consideration to going to [place] verses staying here in [place]. Summary: Family and patient hopeful despite grave condition for patient to receive a liver transplant. Presented to change DNAR status to intubation and chemical only, patient considering. Dr Rodriguez notified of family meeting and to follow up this afternoon. Please see Palliative Care RN notes under "notes section" for additional information. Total Time Spent with Family: 90
[2019-06-09 11:10] LABS: Albumin, Fluid 0.3 g/dL (Not Estab.)
--- NOTE | 2019-06-09 11:48 | PDOC.HOSPP ---
- Subjective Encounter Date: 06/09/19 Encounter Time: 11:41 Subjective: The patient feels much better. He denies abdominal pain. He denies nausea vomiting. No BM yet because he hasn't eaten yet. Entire family here so explained that he is difficult to treat because giving fluids makes his ascites worst and giving lasix makes his kidneys worst. Per Dr. Rodriguez, poor prognosis. Will trial restarting lasix at low dose to see if creatinine worsens. Today it is improved after stopping diuretics but will reaccumulate fluid if it is not restarted. - Objective Vital Signs & Weight: Vital Signs (12 hours) Temp Pulse Resp BP BP Pulse Ox 06/09/19 08:00 97.8 F 98 18 123/79 98 06/09/19 04:00 98.0 F 103 H 16 137/75 97 06/09/19 00:00 98.0 F 100 14 132/74 96 Weight Admit Weight 242 lb 3.2 oz Weight 251 lb 1.6 oz I&O: 06/08/19 06/09/19 06/10/19 06:59 06:59 06:59 Intake Total 1590 1570 Balance 1590 1570 Result Diagrams: 06/09/19 04:34 06/09/19 04:34 Hospitalist ROS - Review of Systems Constitutional: denies: fever, chills - Medication Medications: Active Medications Generic Name Dose Route Start Last Admin Trade Name Freq PRN Reason Stop Dose Admin Calcium Carbonate 1,000 mg 05/31/19 23:58 06/09/19 10:28 Tums PO 1,000 mg Q4H PRN Administration Heartburn or Indigestion Dicyclomine HCl 10 mg 06/06/19 23:05 06/09/19 09:09 Bentyl PO 10 mg QIDPRN PRN Administration Pain Folic Acid 1 mg 06/01/19 09:00 06/09/19 09:12 Folvite PO 1 mg DAILY GIN Administration Hydrocortisone Sodium Succinate 0 gm 06/07/19 09:00 06/09/19 09:12 Proctozone-Hc 2.5% Cream TOP 1 applic BID GIN Administration Dextrose/Sodium Chloride 1,000 mls @ 75 mls/hr 06/03/19 21:15 06/04/19 02:49 D5 0.9% Ns IV Not Given .[id number] GIN Ceftriaxone Sodium 2 gm/ 100 mls @ 200 mls/hr 06/05/19 12:30 06/08/19 14:10 Sodium Chloride IVPB 100 mls Q24HR GIN Administration Lactulose 20 gm 06/05/19 21:00 06/09/19 09:10 Lactulose PO 20 gm TID GIN Administration Melatonin 3 mg 06/08/19 01:21 06/08/19 22:13 Melatonin PO 3 mg HS PRN Administration Insomnia Multivitamins 1 tab 06/01/19 09:00 06/09/19 09:11 Theragran PO 1 tab DAILY GIN Administration Ondansetron HCl 4 mg 05/31/19 23:58 06/09/19 00:10 Zofran Odt PO 4 mg Q6H PRN Administration Nausea/Vomiting Pantoprazole Sodium 40 mg 06/01/19 09:00 06/09/19 09:12 Protonix IVP 40 mg Q12HR GIN Administration Prednisolone 40 mg 06/02/19 09:00 06/09/19 09:11 Orapred Odt PO 40 mg DAILY GIN Administration Sodium Chloride 10 ml 05/31/19 23:58 06/09/19 09:12 Flush - Normal Saline IVF 10 ml PRN PRN Administration Saline Flush Thiamine HCl 100 mg 06/01/19 09:00 06/09/19 09:11 Thiamine PO 100 mg DAILY GIN Administration - Exam General Appearance: NAD, awake alert Eye: PERRL, anicteric sclera ENT: normocephalic atraumatic, no oropharyngeal lesions Neck: supple, symmetric, no JVD Heart: RRR, no murmur, no gallops, no rubs Respiratory: CTAB, no wheezes, no rales, no ronchi Gastrointestinal: soft, no guarding, distended Gastrointestinal - other findings: nontender, ascites Extremities: no cyanosis, no clubbing, no edema Skin: normal turgor, no lesions, no rashes Neurological: cranial nerve grossly intact, normal sensation to touch, no focal deficits, no new deficit Musculoskeletal: normal tone, normal strength, no muscle wasting Psychiatric: normal affect, normal behavior, A&O x 3, oriented to person, oriented to place, oriented to time Hosp A/P - Plan Abdominal ultrasound 06/01: liver cirrhosis, splenomegaly, ascites, GB sludge, hemangiomas Chest X ray 06/01: no acute disease Abd Ultrasound 06/03: moderate ascites This is 43 year old male with cirrhosis who presented with decompensated cirrhosis # Acute hepatic encephalopathy #Acute liver failure secondary to decompensated Cirrhosis #Hepatorenal Syndrome #Acute kidney Injury # Transaminitis - LFT stable. S/p paracentesis with 1L drawn out on 06/01. SBP ruled out on initial paracentesis. Repeat paracentesis done 06/05 but only 600 mL was able to be done. Another paracentesis was done on 06/08 with 4L drawn out, no signs of SBP - octreotide and midodrine discontinued. Continue prednisolone for total of 28 days, D1 06/02 - continue lactulose, titrate to 3 bowel movements daily - resume low dose lasix 20 mg daily, recheck BMP in the am - poor prognosis. Palliative care to contact Dr. Rodriguez for family meeting this afternoon discussing prognosis and goals of care. Patient has filled out MPOA #Leukocytosis - - WBC increased to 17, on treatment for empiric SBP with IV ceftriaxone due to encephalopathy 06/05. Continue for 7 days, cipro on discharge #Anemia - improved, hemoglobin down to 7.4, continue to monitor - B12, folate normal. Ferritin normal, TIBC low, iron sat 12. #Hyponatremia - improving - sodium improved to 134 Dispo: re-evaluate kidney function tomorrow after resuming lasix Code status: full code DVT prophylaxis: hold for now
[2019-06-09] MEDS ORDERED: oxyCODONE 5 MG TAB PO PRN (11:58)
[2019-06-09] MEDS: Furosemide 20 MG TAB PO SCH (12:25)
[2019-06-09] MEDS: cefTRIAXone\\ROCEPHIN 2 GM in Sodium Chloride 0.9% 100 ML IVPB SCH (12:28)
--- NOTE | 2019-06-09 13:15 | PRG ---
DATE OF SERVICE: 06/09/2019 SUBJECTIVE: Mr. Go had a lot of family arrived from [place], had a long discussion with his mother and two sisters and son as well as the patient today. He is feeling about the same. No nausea or vomiting. He is tolerating his diet. He is having bowel movements. Abdominal distention persists, which remains uncomfortable. OBJECTIVE: VITAL SIGNS: Temperature 97.9, pulse 106, blood pressure 130/70, 95% oxygen saturation on room air. GENERAL: In no acute distress. He remains jaundiced. HEART: Regular, borderline tachycardia. LUNGS: Clear to auscultation bilaterally. ABDOMEN: Distended with ascites. Bowel sounds present. Nontender to palpation. EXTREMITIES: No peripheral edema. LABORATORY DATA: WBC up to 21.0, hemoglobin 7.4, platelets 99. INR is 3.4. Sodium 131, potassium 4.1, BUN 37, creatinine 1.36, total bilirubin down slightly to 20.5, alkaline phosphatase 132, AST 145, ALT 93, albumin 2.2. Paracentesis fluid studies from repeat paracentesis yesterday show only 143 WBCs, only 4% neutrophils, so negative for any evidence of SBP. Fluid total protein is less than 1. Fluid triglyceride is 33. ASSESSMENT AND PLAN: 1. Severe alcoholic hepatitis. Continue on prednisolone for 28 day course. Overall prognosis remains poor. Expect the patient to have tenuous clinical status for up to several weeks. 2. Renal insufficiency. The recent increase in creatinine is worrisome, a bad prognostic sign. Diuretics were held yesterday, and creatinine is stable. I do agree with starting him on low-dose oral diuretics. I would use Lasix 20 mg daily and spironolactone 50 mg daily. Continue to follow renal function. If it continues to worsen, may have to back off the diuretics again and call back Nephrology. This issue appears to me to be the greatest barrier to potential hospital discharge. If renal function border to remain stable or improve over the next couple of days, could potentially consider discharge from the hospital on low-dose diuretics. 3. Encephalopathy. This has remained stable on oral lactulose the past few days. 4. Anemia, overall stable. 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 I had a long discussions with the patient's family as well as Palliative care and primary service regarding overall prognosis and future outlook. Prognosis remains quite tenuous. If the patient recovers, which is possible, it could take several weeks or even months to achieve resolution of jaundice and ascites, even with complete alcohol abstinence. During this time, he will be at high risk for decompensation. He could have rupture of known duodenal varices, development of SBP, worsening encephalopathy, worsening renal failure, etc. He is going to need close followup with primary physician and GI/liver doctor for the coming months. There is evidently some discussion about his possibly moving to [place] to be closer to the bulk of his family. I remain available to see the patient here if he remains in the area. If he were to move to [place], I would not recommend air travel, and he would need to have a plan to establish with a cooler man within a week of arrival there. Dr. Bradford is covering for GI this weekend. Job ID: [id number]
[2019-06-10] MEDS ORDERED: diphenhydrAMINE 25 MG CAP PO PRN (00:59)
[2019-06-10] MEDS: Melatonin 3 MG TAB PO PRN ×2 (01:08→21:34)
[2019-06-10] MEDS: Calcium Carbonate 500 MG ChewTAB PO PRN ×2 (02:41→11:53)
[2019-06-10] MEDS: oxyCODONE 5 MG TAB PO PRN ×4 (02:43→20:02)
[2019-06-10] MEDS: Dicyclomine 10 MG CAP PO PRN ×2 (04:34→12:24)
[2019-06-10 04:38] LABS: Hemoglobin 7.7 g/dL (14.0-18.0); Mean Corpuscular HGB CONC 30.2 g/dL (32.0-36.0); Mean Corpuscular Hemoglobin 26.2 pg (27.0-31.0); Mean Corpuscular Volume 86.9 fL (78.0-98.0); Mean Platelet Volume 9.5 fL (7.4-10.4); Platelet Count 116 thou/uL (130-400); RBC Distribution Width 20.2 % (11.5-14.5); Red Blood Cell (RBC) Count 2.94 mill/uL (4.70-6.10); White Blood Cell (WBC) Count 23.9 thou/uL (4.8-10.8)
[2019-06-10 04:53] LABS: Anion Gap 13 mmol/L (10-20); BUN (Urea Nitrogen) 51 mg/dL (8.9-20.6); Calc. Creatinine Clearance 87 mL/min (70-130); Calcium 7.7 mg/dL (7.8-10.44); Carbon Dioxide 20 mmol/L (22-29); Chloride 99 mmol/L (98-107); Estimated GFR-MDRD 42; Glucose 147 mg/dL (70-105); Potassium 4.1 mmol/L (3.5-5.1); Sodium 128 mmol/L (136-145)
[2019-06-10] MEDS: Proctozone-HC 2.5% Cream 30 GM TUBE TOP SCH ×2 (09:00→20:03)
[2019-06-10] MEDS: Multivit, Therapeutic 1 TAB PO SCH (10:31)
[2019-06-10] MEDS: Furosemide 20 MG TAB PO SCH (10:31)
[2019-06-10] MEDS: Folic Acid 1 MG TAB PO SCH (10:31)
[2019-06-10] MEDS: Thiamine 100 MG TAB PO SCH (10:31)
[2019-06-10] MEDS: Pantoprazole 40 MG VIAL IVP SCH ×2 (11:45→20:02)
[2019-06-10] MEDS: prednisoLONE 10 MG ODT TAB PO SCH (11:49)
[2019-06-10] MEDS: cefTRIAXone\\ROCEPHIN 2 GM in Sodium Chloride 0.9% 100 ML IVPB SCH (13:43)
--- NOTE | 2019-06-10 14:27 | PRG ---
DATE OF SERVICE: 06/10/2019 SUBJECTIVE: He has abdominal distention and pain from his ascites. This is stable. He feels better today overall. No nausea or vomiting. He is tolerating oral diet. OBJECTIVE: VITAL SIGNS: Temperature is 98.3, pulse 100, blood pressure 102/51. GENERAL: He is alert and oriented x3. No asterixis. LUNGS: Clear to auscultation bilaterally. HEART: Regular rate and rhythm without murmur. ABDOMEN: Soft, distended with ascites, mildly tender to palpation. Bowel sounds are present. EXTREMITIES: 1+ lower extremity edema. LABORATORY DATA: Creatinine is 1.8 today, up from 1.36 yesterday. Sodium 128, bilirubin 20. INR 3.4. White blood cell count is 23.9, hemoglobin 7.7, platelets 116. IMPRESSION: 1. Severe alcoholic hepatitis. He is on a 28-day course of prednisone. His bilirubin and INR remain significantly elevated. His creatinine is increasing, which certainly is worrisome. His sodium is also decreased, which is a negative prognostic sign as well. 2. Acute renal failure. His creatinine increased from 1.4 to 1.8 today. He complains of ongoing pain from his ascites. He has been on a low-salt diet. We will recheck the trend of his creatinine tomorrow and if it continues to rise, then we will stop the furosemide. 3. Hepatic encephalopathy. This is improved with lactulose. He has markedly improved mental status compared to a few nights ago. 4. Anemia. It is stable. He did have duodenal varices that were treated with glue injection recently at [facility] in [place]. RECOMMENDATIONS: 1. Continue lactulose. 2. Continue furosemide for now, but if his creatinine increases tomorrow, then stop it. 3. Continue prednisolone. 4. He has required oxycodone for pain control for the abdominal distention from the ascites. 5. Recheck labs tomorrow. Follow the trend of his creatinine. Job ID: [id number]
--- NOTE | 2019-06-10 14:48 | PDOC.HOSPP ---
- Subjective Encounter Date: 06/10/19 Encounter Time: 14:46 Subjective: Patient seen and examined. No new complaints. No overnight events. c/o abd pain. No N/V/D. ascites present. - Objective Vital Signs & Weight: Vital Signs (12 hours) Temp Pulse Resp BP BP Pulse Ox 06/10/19 12:00 98.3 F 100 22 H 102/51 L 93 L 06/10/19 08:34 98.0 F 98 20 118/62 92 L 06/10/19 04:00 98.2 F 107 H 18 140/73 93 L Weight Admit Weight 242 lb 3.2 oz Weight 253 lb 3.2 oz I&O: 06/09/19 06/10/19 06/11/19 06:59 06:59 05:59 Intake Total 1570 240 Balance 1570 240 Result Diagrams: 06/10/19 03:58 06/10/19 03:58 Additional Labs: Accuchecks 06/09/19 16:52 POC Glucose 191 H Hospitalist ROS - Medication Medications: Active Medications Generic Name Dose Route Start Last Admin Trade Name Freq PRN Reason Stop Dose Admin Calcium Carbonate 1,000 mg 05/31/19 23:58 06/10/19 11:53 Tums PO 1,000 mg Q4H PRN Administration Heartburn or Indigestion Dicyclomine HCl 10 mg 06/06/19 23:05 06/10/19 12:24 Bentyl PO 10 mg QIDPRN PRN Administration Pain Diphenhydramine HCl 25 mg 06/10/19 00:59 06/10/19 01:01 Benadryl PO 25 mg Q6H PRN Administration Itching Folic Acid 1 mg 06/01/19 09:00 06/10/19 10:31 Folvite PO 1 mg DAILY GIN Administration Furosemide 20 mg 06/09/19 09:00 06/10/19 10:31 Lasix PO 20 mg DAILY GIN Administration Hydrocortisone Sodium Succinate 0 gm 06/07/19 09:00 06/09/19 20:17 Proctozone-Hc 2.5% Cream TOP 1 applic BID GIN Administration Ceftriaxone Sodium 2 gm/ 100 mls @ 200 mls/hr 06/05/19 12:30 06/10/19 13:43 Sodium Chloride IVPB 100 mls Q24HR GIN Administration Lactulose 20 gm 06/05/19 21:00 06/10/19 10:31 Lactulose PO 20 gm TID GIN Administration Melatonin 3 mg 06/08/19 01:21 06/10/19 01:08 Melatonin PO 3 mg HS PRN Administration Insomnia Multivitamins 1 tab 06/01/19 09:00 06/10/19 10:31 Theragran PO 1 tab DAILY GIN Administration Ondansetron HCl 4 mg 05/31/19 23:58 06/09/19 00:10 Zofran Odt PO 4 mg Q6H PRN Administration Nausea/Vomiting Oxycodone HCl 5 mg 06/10/19 13:10 06/10/19 13:42 Oxycodone Ir PO 5 mg Q4H PRN Administration Pain Pantoprazole Sodium 40 mg 06/01/19 09:00 06/10/19 11:45 Protonix IVP 40 mg Q12HR GIN Administration Prednisolone 40 mg 06/02/19 09:00 06/10/19 11:49 Orapred Odt PO 40 mg DAILY GIN Administration Sodium Chloride 10 ml 05/31/19 23:58 06/10/19 13:45 Flush - Normal Saline IVF 10 ml PRN PRN Administration Saline Flush Thiamine HCl 100 mg 06/01/19 09:00 06/10/19 10:31 Thiamine PO 100 mg DAILY GIN Administration - Exam General Appearance: NAD Eye: scleral icterus ENT: normocephalic atraumatic Neck: supple Heart: RRR Respiratory: CTAB Gastrointestinal: soft Extremities: 2+ LE edema Neurological: no weakness Musculoskeletal: normal tone Psychiatric: normal affect Hosp A/P (1) Anemia Code(s): D64.9 - ANEMIA, UNSPECIFIED Status: Acute (2) Alcoholism Code(s): F10.20 - ALCOHOL DEPENDENCE, UNCOMPLICATED Status: Acute (3) Encephalopathy Code(s): G93.40 - ENCEPHALOPATHY, UNSPECIFIED Status: Acute (4) NOLA (acute kidney injury) Code(s): N17.9 - ACUTE KIDNEY FAILURE, UNSPECIFIED Status: Acute (5) Hepatorenal syndrome Code(s): K76.7 - HEPATORENAL SYNDROME Status: Acute - Plan old records reviewed/req, plan discussed w/ family, continue antibiotics continue steroids on lasix for edema will increase Oxycodone to 5 mg po q4h. will give 3 doses of albumin. Appreciate GI input. AM labs.
[2019-06-10] MEDS: Albumin 25% 25 GM/100 ML BOT IVPB SCH ×2 (16:12→20:02)
[2019-06-11] MEDS: oxyCODONE 5 MG TAB PO PRN ×7 (00:19→23:26)
[2019-06-11] MEDS: Albumin 25% 25 GM/100 ML BOT IVPB SCH (02:46)
[2019-06-11 06:53] LABS: Anion Gap 14 mmol/L (10-20); BUN (Urea Nitrogen) 74 mg/dL (8.9-20.6); Calc. Creatinine Clearance 79 mL/min (70-130); Calcium 7.7 mg/dL (7.8-10.44); Carbon Dioxide 20 mmol/L (22-29); Chloride 95 mmol/L (98-107); Estimated GFR-MDRD 35; Glucose 118 mg/dL (70-105); Sodium 124 mmol/L (136-145)
[2019-06-11] MEDS: Furosemide 20 MG TAB PO SCH (08:08)
[2019-06-11] MEDS: Folic Acid 1 MG TAB PO SCH (08:08)
[2019-06-11] MEDS: Thiamine 100 MG TAB PO SCH (08:08)
[2019-06-11] MEDS: Multivit, Therapeutic 1 TAB PO SCH (08:08)
[2019-06-11] MEDS: Proctozone-HC 2.5% Cream 30 GM TUBE TOP SCH ×2 (08:09→21:18)
[2019-06-11] MEDS: Pantoprazole 40 MG VIAL IVP SCH ×2 (08:09→21:17)
[2019-06-11] MEDS: Dicyclomine 10 MG CAP PO PRN (08:13)
[2019-06-11] MEDS: prednisoLONE 10 MG ODT TAB PO SCH (08:14)
--- NOTE | 2019-06-11 12:11 | PDOC.HOSPP ---
- Subjective Encounter Date: 06/11/19 Encounter Time: 12:09 Subjective: Patient seen and examined. worsening swelling and worsening pain. - Objective Vital Signs & Weight: Vital Signs (12 hours) Temp Pulse Resp BP Pulse Ox 06/11/19 11:19 94 L 06/11/19 11:11 97.7 F 103 H 24 H 111/53 L 91 L 06/11/19 07:57 97.7 F 102 H 20 127/59 L 91 L 06/11/19 01:53 WIRELESS TELEGR[employer]HER 94 L Weight Admit Weight 242 lb 3.2 oz Weight 262 lb I&O: 06/10/19 06/11/19 06/12/19 07:59 06:59 06:59 Intake Total Balance Result Diagrams: 06/10/19 03:58 06/11/19 05:23 Hospitalist ROS - Medication Medications: Active Medications Generic Name Dose Route Start Last Admin Trade Name Freq PRN Reason Stop Dose Admin Calcium Carbonate 1,000 mg 05/31/19 23:58 06/10/19 11:53 Tums PO 1,000 mg Q4H PRN Administration Heartburn or Indigestion Dicyclomine HCl 10 mg 06/06/19 23:05 06/11/19 08:13 Bentyl PO 10 mg QIDPRN PRN Administration Pain Diphenhydramine HCl 25 mg 06/10/19 00:59 06/10/19 01:01 Benadryl PO 25 mg Q6H PRN Administration Itching Folic Acid 1 mg 06/01/19 09:00 06/11/19 08:08 Folvite PO 1 mg DAILY GIN Administration Hydrocortisone Sodium Succinate 0 gm 06/07/19 09:00 06/11/19 08:09 Proctozone-Hc 2.5% Cream TOP 1 applic BID GIN Administration Ceftriaxone Sodium 2 gm/ 100 mls @ 200 mls/hr 06/05/19 12:30 06/10/19 13:43 Sodium Chloride IVPB 100 mls Q24HR GIN Administration Lactulose 20 gm 06/05/19 21:00 06/11/19 08:07 Lactulose PO 20 gm TID GIN Administration Melatonin 3 mg 06/08/19 01:21 06/10/19 21:34 Melatonin PO 3 mg HS PRN Administration Insomnia Multivitamins 1 tab 06/01/19 09:00 06/11/19 08:08 Theragran PO 1 tab DAILY GIN Administration Ondansetron HCl 4 mg 05/31/19 23:58 06/09/19 00:10 Zofran Odt PO 4 mg Q6H PRN Administration Nausea/Vomiting Oxycodone HCl 5 mg 06/10/19 13:10 06/11/19 08:24 Oxycodone Ir PO 5 mg Q4H PRN Administration Pain Pantoprazole Sodium 40 mg 06/01/19 09:00 06/11/19 08:09 Protonix IVP 40 mg Q12HR GIN Administration Prednisolone 40 mg 06/02/19 09:00 06/11/19 08:14 Orapred Odt PO 40 mg DAILY GIN Administration Sodium Chloride 10 ml 05/31/19 23:58 06/10/19 13:45 Flush - Normal Saline IVF 10 ml PRN PRN Administration Saline Flush Thiamine HCl 100 mg 06/01/19 09:00 06/11/19 08:08 Thiamine PO 100 mg DAILY GIN Administration - Exam General Appearance: NAD Eye: scleral icterus ENT: normocephalic atraumatic Neck: supple Heart: RRR Respiratory: CTAB Gastrointestinal - other findings: distended, ascites present Extremities: 2+ LE edema Neurological: no weakness Psychiatric: normal affect, lethargic Hosp A/P (1) Anemia Code(s): D64.9 - ANEMIA, UNSPECIFIED Status: Acute (2) Alcoholism Code(s): F10.20 - ALCOHOL DEPENDENCE, UNCOMPLICATED Status: Acute (3) Encephalopathy Code(s): G93.40 - ENCEPHALOPATHY, UNSPECIFIED Status: Acute (4) NOLA (acute kidney injury) Code(s): N17.9 - ACUTE KIDNEY FAILURE, UNSPECIFIED Status: Acute (5) Hepatorenal syndrome Code(s): K76.7 - HEPATORENAL SYNDROME Status: Acute - Plan old records reviewed/req, plan discussed w/ family continue steroids will hold lasix due to NOLA. consider Oxycodone to 5 mg po q4h. Appreciate GI input. Na dropping Prognosis extremely poor. Had discussion with family and is aware of the situation. ? consider palliative care consult. AM labs.
[2019-06-11] MEDS: cefTRIAXone\\ROCEPHIN 2 GM in Sodium Chloride 0.9% 100 ML IVPB SCH ×2 (12:30→14:25)
--- NOTE | 2019-06-11 18:23 | PRG ---
DATE OF SERVICE: 06/11/2019 SUBJECTIVE: Mr. Go has complained of diffuse abdominal pain with abdominal distention and ascites today. He has been receiving oxycodone to control his pain. He reports two bowel movements today, one was formed and one was watery. He is receiving lactulose 20 g three times a day. He is taking a couple of protein supplements and some clear liquids otherwise. PHYSICAL EXAMINATION: VITAL SIGNS: Temperature 97.7, pulse 103, and blood pressure 111/53. GENERAL: He is sleepy, but wakes up and responds appropriately when aroused. LUNGS: Clear to auscultation bilaterally. HEART: Regular rate and rhythm without murmur. ABDOMEN: Distended . Bowel sounds are present. EXTREMITIES: 2+ pitting lower extremity edema. LABORATORY DATA: White blood cell count 23.9, hemoglobin 7.7, and platelets 116. INR 3.4. Sodium 124, potassium 5.0, chloride 95, CO2 of 20, BUN 74, and creatinine 2.08. IMPRESSION: 1. Severe acute alcoholic hepatitis, on prednisolone. Likely underlying decompensated cirrhosis. 2. Hepatic encephalopathy. He has improved significantly with lactulose, however, is sleepy again this evening. This might be more related to the oxycodone. 3. Acute renal failure. His creatinine has increased again today to 2.08. This is a worrisome prognostic factor. We will stop the furosemide. 4. abdominal pain. At this point, we are unable to give diuretics. He is on a low-salt diet. We can ask Radiology if they can perform paracentesis tomorrow. However, the INR being elevated at 3.4 is a limiting factor. We will give a couple of units of FFP in the morning and recheck the INR, and hopefully, we can get paracentesis done tomorrow. 5. Hyponatremia. RECOMMENDATIONS: 1. Prednisolone. 2. Lactulose. 3. Add Xifaxan. 4. We will request paracentesis for tomorrow and give FFP 2 units in the morning and recheck labs after that. Job ID: [id number]
[2019-06-11] MEDS: Melatonin 3 MG TAB PO PRN (23:33)
[2019-06-12 05:10] LABS: Actual Bicarbonate (HCO3a) 13.6 mEq/L (22-28); Analyzer IN Cardio OR; Base Excess (BEa) -12.3 mEq/L (-2.0 to +3.0); CO2 Tension 30.6 mmHg (35.0-45.0); Calcium, Ionized 1.05 mmol/L (1.12-1.30); Carboxyhemoglobin (COHb) 4.6 gm% (0.0-3.0); Hemoglobin (Hb) 4.4 g/dL (14.0-18.0); O2 Tension (PaO2) 72.7 mmHg (80.0-100.0); Potassium - ABG Lab 5.93 mmol/L (3.70-5.30); pH, Arterial 7.27 (7.35-7.45)
--- NOTE | 2019-06-12 05:17 | PDOC.EVN ---
Event Note - Event Note Event Note: Code Green converting to Blue due to unresponsiveness and hypotension in context of ESLD due to ETOH. Nursing noted decreased LOC and lethargy. Pt lethargic, agitated in bed, flailing arms randomly, slurred speech. VS BP 60- 70 systolic, HR 90's, O2 sat 94% on 3L/min NC + scleral icterus, oral mucosa dry, neck supple, diminished air flow in lung bases, CV S1, S2 without murmur, ABD distended, + ascites, BS + Ext with edema to thighs, skin jaundiced globally Gluc - 96 Hbg 4.4 down from 7 A/P: Acute Blood Loss Anemia - Transfuse 2u PRBC's now, serial H/H, FFP, Vitamin K, Protonix 40mg IV BID Toxic Metabolic Encephalopathy - Lactulose enema 30gm QID, Ammonia level now Hypotension - multifactorial, Albumin infusion, 2u PRBC's, avoid antihypertensives ESLD due ETOH - appears end-stage, Palliative care, consider Hospice Transfer to CCU Updated family at the bedside Total critical care time: 35min
[2019-06-12 05:18] LABS: Hemoglobin 4.4 g/dL (14.0-18.0); Mean Corpuscular HGB CONC 28.4 g/dL (32.0-36.0); Mean Corpuscular Hemoglobin 26.3 pg (27.0-31.0); Mean Corpuscular Volume 92.5 fL (78.0-98.0); Mean Platelet Volume 12.4 fL (7.4-10.4); Platelet Count 103 thou/uL (130-400); RBC Distribution Width 26.3 % (11.5-14.5); Red Blood Cell (RBC) Count 1.67 mill/uL (4.70-6.10); White Blood Cell (WBC) Count 23.5 thou/uL (4.8-10.8)
[2019-06-12 05:19] LABS: Puncture Site RRA
[2019-06-12 05:22] LABS: Prothrombin Time 65.8 SEC (12.0-14.7)
[2019-06-12 05:24] LABS: INR-International Normal Ratio 7.9
[2019-06-12] MEDS ORDERED: Phytonadione 10 MG/ML AMP SLOW IVP SCH (05:30)
[2019-06-12 05:37] LABS: Band 9 % (5-11); Bite Cells SLIGHT = 2-5 cells (100X) (0-1/hpf); Burr Cells SLIGHT = 2-5 cells (100X) (0-1/hpf); Lymphocytes 7 % (21-51); MDiff Complete? YES; Metamyelocyte 3 % (0-0); Monocytes 6 % (0-10); Neutrophil 75 % (42-75); Ovalocytes SLIGHT = 2-5 cells (100X) (0-1/hpf); Platelet Morphology Comment Appears Decreased; Schistocytes SLIGHT = 2-5 cells (100X) (0-1/hpf)
[2019-06-12 06:09] LABS: Chloride 92 mmol/L (98-107); Potassium 6.4 mmol/L (3.5-5.1); Sodium 120 mmol/L (136-145)
[2019-06-12 06:10] LABS: Calcium 7.8 mg/dL (7.8-10.44); Glucose 85 mg/dL (70-105)
[2019-06-12 06:11] LABS: Globulin 2.3 g/dL (2.4-3.5); Protein, Total 4.3 g/dL (6.0-8.3)
[2019-06-12 06:12] LABS: Anion Gap 18 mmol/L (10-20); Carbon Dioxide 16 mmol/L (22-29)
[2019-06-12 06:13] LABS: Alkaline Phosphatase 78 U/L (40-110)
[2019-06-12 06:15] LABS: BUN (Urea Nitrogen) 101 mg/dL (8.9-20.6)
[2019-06-12] MEDS ORDERED: Norepinephrine 8 MG/0.9% NS 250 ML IVPB SCH (06:15)
[2019-06-12 06:16] LABS: ALT (SGPT) 125 U/L (8-55); AST (SGOT) 224 U/L (5-34)
[2019-06-12] MEDS ORDERED: Norepinephrine 8 MG in Dextrose 5% in Water 242 ML IVPB PRN (06:18)
--- NOTE | 2019-06-12 06:18 | PDOC.EVN ---
Event Note - Event Note Event Note: Transferred to CCU with BP in 60-70's systolic, HR 99, RR 30, T-98.1F, O2 sat 95 % on 3L/min NC, remains lethargic with resp distress, slurred speech, random movements of arms and legs Hypotension - persists, start Levophed drip, transfuse 2u PRBC's, IVF NS x 1L bolus Acute Blood loss anemia - see above, GI consult, 2u FFP, Vit K 10mg IV x 1, serial H/H Resp Failure - continue O2 support, consult Pulmonary for consideration of intubation Toxic Metabolic Encephalopathy - Lactulose enema Family updated of status Code Status: Full Total additional critical care time: 40min
[2019-06-12 06:23] LABS: Calc. Creatinine Clearance 43 mL/min (70-130); Estimated GFR-MDRD 17
--- NOTE | 2019-06-12 06:42 | PDOC.EVN ---
Event Note - Event Note Event Note: Creatinine, K+ level worsening with suspected hepatorenal syndrome, Calcium Gluconate IV x 1 now, poor prognosis given the progressive renal decline Palliative care/hospice appropriate option given the multitude of co-morbid conditions.
[2019-06-12] MEDS ORDERED: Calcium Gluc 4.6 MEQ/10 ML (100 MG/ML) SLOW IVP SCH (06:45)
[2019-06-12] MEDS: Albumin 25% 25 GM/100 ML BOT IVPB SCH ×2 (07:35→11:54)
[2019-06-12 07:58] VITALS: BP 87/39
[2019-06-12] MEDS ORDERED: Lidocaine 2% PF 100 mg/5 ml Syringe ONE (09:00)
[2019-06-12] MEDS: Lactulose 10 GM/15 ML Oral Solution PR SCH ×2 (09:07→11:54)
[2019-06-12] MEDS: Pantoprazole 40 MG VIAL IVP SCH (09:15)
[2019-06-12] MEDS ORDERED: Morphine 4 MG/ML VIAL ONE (10:31)
[2019-06-12] MEDS ORDERED: Lorazepam 2 MG/ML VIAL ONE (10:32)
[2019-06-12] MEDS: Lorazepam 2 MG/ML VIAL SLOW IVP PRN ×2 (10:35→12:23)
--- NOTE | 2019-06-12 10:57 | PDOC.PALPN ---
Palliative Progress Note - Subjective Labored respirations, push of speech. Complains of chest tightness, shortness of breath. Edema, restless - Objective Vital Signs: Vital Signs - Most Recent Temp Pulse Resp BP Pulse Ox 94.5 F L 91 18 87/39 L 100 06/12/19 08:00 06/12/19 07:50 06/12/19 07:50 06/12/19 07:50 06/12/19 08:00 - Physical Exam Constitutional: moderate distress HEENT: moist MMs, EOMI Deviation from normal: icteric sclera Respiratory: tachypnea Deviation from normal: labored respirations Cardiovascular: RRR Deviation from normal: dsitended, firm Musculoskeletal: edema present Deviation from normal: edema +3 Neurological: moves all 4 limbs Deviation from normal: confused, restless Deviation from normal: icteric - Assessment (1) Palliative care encounter Code(s): Z51.5 - ENCOUNTER FOR PALLIATIVE CARE Current Visit: Yes Status: Acute (2) Ascites Code(s): R18.8 - OTHER ASCITES Current Visit: Yes Status: Acute (3) Alcoholic hepatitis Code(s): K70.10 - ALCOHOLIC HEPATITIS WITHOUT ASCITES Current Visit: No Status: Acute (4) Encephalopathy Code(s): G93.40 - ENCEPHALOPATHY, UNSPECIFIED Current Visit: Yes Status: Acute - Plan Plan: Ian Guillory and Beryl Sylvester spoke with sister, and patient children confirming patient to be a DNAR. Mother and significant other at bedside. Morphine given for comfort, 2mg IVP. Dr Oneil notified of family wishes for patient to be a DNAR and comfort measures. Theraputic listening and emotional support for family at bedside. [60] minutes spent on this encounter with >50% of the time in counseling and coordination of care.
[2019-06-12] MEDS: Folic Acid 1 MG TAB PO SCH (11:08)
[2019-06-12] MEDS: Proctozone-HC 2.5% Cream 30 GM TUBE TOP SCH (11:09)
[2019-06-12] MEDS: Thiamine 100 MG TAB PO SCH (11:11)
[2019-06-12] MEDS: Multivit, Therapeutic 1 TAB PO SCH (11:11)
[2019-06-12] MEDS: prednisoLONE 10 MG ODT TAB PO SCH (11:11)
[2019-06-12] MEDS ORDERED: Morphine 2 MG/ML SYRINGE SLOW IVP PRN (11:12)
[2019-06-12] MEDS: cefTRIAXone\\ROCEPHIN 2 GM in Sodium Chloride 0.9% 100 ML IVPB SCH (11:54)
[2019-06-12 12:20] VITALS: TEMP 93.7
--- NOTE | 2019-06-12 15:15 | DIS ---
DATE OF ADMISSION: 05/31/2019 DATE OF DISCHARGE: 06/12/2019 DATE OF : 06/12/2019 at 12:33. DIAGNOSTIC TEST: Chest x-ray on admission was negative for infiltrate. Abdominal ultrasound on June 01, 2019, showed cirrhosis of the liver with splenomegaly, ascites, gallbladder sludge, and hyperechoic lesions in the liver most likely representing hemangioma. On June 01, 2019, ultrasound-guided paracentesis was done yielding 1 L of yellow ascites. On June 04, 2019, limited ultrasound of abdomen showed moderate amount of free fluid in 4 quadrant consistent with ascites. On June 05, 2019, the patient underwent paracentesis with removal of 600 mL. On June 08, 2019, the patient underwent paracentesis draining 3.9 L of yellow-colored fluid. INPATIENT CONSULTANTS: 1. Gastroenterology, Dr. Bradford, Dr. Morgan. 2. Nephrology, Dr. Dahl. BRIEF HOSPITAL COURSE: The patient is a 43-year-old male with alcoholic cirrhosis with portal hypertension, presented to the hospital with abdominal discomfort. Please refer to the history and physical on details. The patient was admitted to the hospital with a diagnosis of severe alcoholic hepatitis along with symptomatic ascites. Initial fluid studies were negative for SBP. He had encephalopathy, for which he was started on lactulose. His bilirubin on admission was 27.3. It gradually improved to 18.0, this morning. He also had significant renal failure with creatinine of 2.03 on admission and 3.83 this morning. The patient had a Code Blue this morning for unresponsiveness and hypotension. His hemoglobin was down to 4.4. He was started on blood transfusion along with FFP, vitamin K, and Protonix. He remained confused. He was made [id number] earlier today. The patient at 12:33 earlier today. Family was at the bedside. FINAL DIAGNOSES: 1. Severe alcoholic hepatitis. 2. Symptomatic ascites. 3. Toxic metabolic encephalopathy. 4. Anemia secondary to acute blood loss. 5. Duodenal varices. 6. Coagulopathy. 7. Hyponatremia. 8. Thrombocytopenia secondary to cirrhosis. 9. Cholelithiasis. 10. Duodenal varices status post recent intervention at [facility]. 11. Acute kidney injury, suspected hepatorenal syndrome. 12. Hyperkalemia. 13. Metabolic acidosis. 14. Obesity with a BMI of 35. Job ID: [id number]
--- NOTE | 2019-06-12 16:16 | CON ---
DATE OF CONSULTATION: 06/12/2019 SERVICE: Pulmonary Medicine. REASON FOR CONSULTATION: ICU patient. HISTORY OF PRESENT ILLNESS: The patient is a 43-year-old male with past medical history significant for end-stage liver disease. He has been in the hospital for roughly 12 days. On presentation, he came in because of abdominal distention and discomfort. Ultimately, he was discovered to have large volume ascites. He has been tapped a couple of times during this presentation. On the night he came down to the ICU, he had a bradycardic event, his blood pressures were quite marginal. He ended up getting put on peripheral Levophed. Ultimately, multiple conversations have been had with Palliative Care and Gastroenterology. At this point, the patient is not a good candidate for any type of transplantation procedure. As of this morning, the decision was made to transition over to comfort care only. We are working toward that measure at this point. He indicates he has some abdominal distention and discomfort, but otherwise, he feels like he is breathing comfortably. There were no significant overnight events with fevers or chills. He did have bowel movements associated with lactulose. PAST MEDICAL HISTORY: 1. Cirrhosis secondary to alcohol abuse. 2. Chronic hepatitis C. 3. Cholelithiasis. 4. Hyponatremia. 5. History of GI bleed. PAST SURGICAL HISTORY: 1. EGD. 2. Endovascular coiling. ALLERGIES: NO KNOWN DRUG ALLERGIES. MEDICATIONS: List of the patient's inpatient medications were reviewed. No specific updates were made at this time. FAMILY HISTORY: Noncontributory. SOCIAL HISTORY: He is a formal alcohol user. He denies any current alcohol, tobacco, or illicit drug use. He has no exposure to chemicals, dust, asbestos, or tuberculosis. REVIEW OF SYSTEMS: General, head, ears, eyes, nose, throat, cardiovascular, respiratory, GI, , musculoskeletal, neurologic, and skin is negative except as mentioned in the HPI. PHYSICAL EXAMINATION: VITAL SIGNS: Afebrile; pulse 94; blood pressure 89/41; respirations 20; and saturation 100%, currently on 3 L nasal cannula. GENERAL: The patient is awake and alert. He is a little bit somnolent, but follows simple commands. HEENT: Normocephalic, atraumatic. Sclerae are yellow. Conjunctivae are yellow. Oral and nasal mucosa are moist. There are no lesions. He has spider telangiectasias over the head and neck area. LUNGS: Decent air entry. Crackles are present. There is no prolonged expiratory phase or wheezing appreciated. HEART: Normal rate. Regular. ABDOMEN: Distended. Bowel sounds are present, however. There is tenderness to palpation, but no rebound or guarding. MUSCULOSKELETAL: No cyanosis or clubbing. 3 to 4+ pitting is present throughout. NEUROLOGIC: Grossly nonfocal. LABORATORY DATA: WBC 23.5, hemoglobin 4.4 and downtrending, and platelets 103, 000. INR is 7.9. PH of 7.27, pO2 of 72, and pCO2 of 31. Creatinine 3.83, BUN 101, bicarb 16, chloride 92, potassium 6.4, and sodium 120. AST and ALT are up- trending to 224 and 125 respectively. Ammonia 78 and up-trending, total bilirubin 18. Urinalysis is unremarkable. Ascites fluid has been tapped x2 and demonstrates a transudate. All culture results remain negative to date. IMAGING DATA: Abdominal ultrasound demonstrates large amount of ascites. Liver has a cirrhotic morphology. ASSESSMENT: 1. Acute hypoxic respiratory failure. 2. End-stage liver disease with acute decompensation. 3. Hepatorenal syndrome. 4. Acute kidney injury. 5. Anemia, suspect acute blood loss. 6. Metabolic encephalopathy. 7. Multi-system organ dysfunction. DISCUSSION AND PLAN: This patient is not doing very well. That being said, the decision has already been made to transition over to comfort care only, which I think is perfectly reasonable given his advanced comorbidities, and lack of good long-term options moving forward. I will continue to follow in this location, but from my perspective, once we formalize our transition to comfort care only, he can be weaned from the Levophed, and transition to the floor. Please call if the family decides to be aggressive moving forward as he would likely need multiple, urgent , advanced interventions. I will continue to follow along in this location, however. 70 minutes have been devoted to this patient in various activities. I personally reviewed all imaging studies and laboratory data noted within this document. For fifty percent of this time, I was interacting with the patient at the bedside or coordinating care with the care team. For the remainder of the time I was immediately available to the patient in the hospital unit. Job ID: [id number] [facility]
--- NOTE | 2019-06-12 19:55 | PDOC.EVN ---
Event Note - Event Note Event Note: Early this morning, I was called to bedside for a code green. Mr Espinoza had become unresponsive while sitting in his chair. Together with several staff we were able to life him back into bed. He was found to be bradycardic and a code blue was called. His heart rate spontaneously improved. Dr Dyson arrived and assessed the patient. We thought he had increasing hepatic encephalopathy. Dr Dyson transferred him to the CCU. Together with Dr Dyson, we discussed the indications and risks of sedation, ET placement and CVC placement. While the ABG and labs did not indicate respiratory failure, his INR was significantly elevated along with severe anemia with metabolic acidosis. Dr Dyson and I agreed that the safest course of action was to transfuse blood, FFP, and then consider CVC placement if needed. Levophed could be started peripherally if needed. While Dr Dyson attended to the patient, I updated the girlfriend who was present, and Ranulfo's brother, Aryan, by phone of the dire clinical situation. All questions answered.
--- NOTE | 2019-06-14 07:44 | PQF ---
Ranulfo Go MALIK MD [id number] CLINICAL DOCUMENTATION CLARIFICATION FORM: POST DISCHARGE Addendum to original discharge summary date: ____ Late entry note date: __ DATE:06/14/2019 ATTN: CALEB HERRERA MD Please exercise your independent, professional judgment in responding to the clarification form. Clinical indicators are provided on the bottom of this form for your review Please check appropriate box(s) to clarify if the following diagnosis has been ruled in or ruled out: Sepsis [ x ] Ruled in diagnosis [ ] Continue to treat [ x ] Resolved [ ] Ruled out diagnosis [ ] Cannot rule out diagnosis [ ] Other diagnosis [ ] Unable to determine For continuity of documentation, please document condition throughout progress notes and discharge summary. Thank You. CLINICAL INDICATORS - SIGNS / SYMPTOMS / LABS - [place], Hyponatremia, sepsis- ED record, 05/31, Nilo Truong MD - Temp: 98.1, RR: 22, Pulse: 107, BP:106/72- H&P, 05/31, CALEB HERRERA MD - WBC:13.7-H&P, 05/31, CALEB HERRERA MD - Metabolic acidosis- DS, 06/12, CALEB HERRERA MD - RISK FACTORS - Toxic metabolic encephalopathy-DS, 06/12, CALEB HERRERA MD - Acute kidney injury, suspected hepatorenal syndrome-DS, 06/12, CALEB HERRERA MD TREATMENTS -Rocephin.IV-MAR, 06/05 (This form is maintained as a part of the permanent medical record) 2014 [employer]. All Rights Reserved [employer] [not provided] [not provided] MTDD
== END 2019-06-12 13:30 | disposition expired | DRG 871 ==
LOC: ERS 18:16 → 2NO 22:46 → ONC 06-09 18:57 → CCU 06-12 05:18
PROVIDERS: ADMIT Internal Medicine; ATTEND Internal Medicine
PROC: 0W9G3ZZ Drainage of Peritoneal Cavity, Percutaneous Approach (ICD-10-PCS; principal; 2019-06-01)
PROC: BF45ZZZ Ultrasonography of Liver (ICD-10-PCS; 2019-06-01)
PROC: 0W9G3ZZ Drainage of Peritoneal Cavity, Percutaneous Approach (ICD-10-PCS; 2019-06-05)
PROC: BF45ZZZ Ultrasonography of Liver (ICD-10-PCS; 2019-06-05)
PROC: 0W9G3ZZ Drainage of Peritoneal Cavity, Percutaneous Approach (ICD-10-PCS; 2019-06-08)
PROC: BF45ZZZ Ultrasonography of Liver (ICD-10-PCS; 2019-06-08)
DX: A41.9 Sepsis, unspecified organism (principal); G92 Toxic encephalopathy; K76.7 Hepatorenal syndrome; J96.01 Acute respiratory failure with hypoxia; D62 Acute posthemorrhagic anemia; D68.9 Coagulation defect, unspecified; E87.1 Hypo-osmolality and hyponatremia; N17.9 Acute kidney failure, unspecified; E87.2 Acidosis; K76.6 Portal hypertension; Z51.5 Encounter for palliative care; K70.40 Alcoholic hepatic failure without coma; K70.11 Alcoholic hepatitis with ascites; K70.31 Alcoholic cirrhosis of liver with ascites; I86.8 Varicose veins of other specified sites; D69.6 Thrombocytopenia, unspecified; K80.20 Calculus of gallbladder without cholecystitis without obstruction; D18.09 Hemangioma of other sites; E87.5 Hyperkalemia; E66.9 Obesity, unspecified; I12.9 Hypertensive chronic kidney disease with stage 1 through stage 4 chronic kidney disease, or unspecified chronic kidney disease; B18.2 Chronic viral hepatitis C; N18.3 Chronic kidney disease, stage 3 (moderate); I95.9 Hypotension, unspecified; F10.20 Alcohol dependence, uncomplicated; D63.1 Anemia in chronic kidney disease; R74.0 Nonspecific elevation of levels of transaminase and lactic acid dehydrogenase [LDH]; Z68.35 Body mass index [BMI] 35.0-35.9, adult
CPT/HCPCS: 36415; 36416; 36430; 49083; 71045; 76705; 80048; 80053; 80076; 81001; 82042; 82140; 82607; 82728; 82746; 82805; 83540; 83550; 83605; 83690; 83735; 83880; 84100; 84157; 84478; 85025; 85027; 85060; 85610; 85730; 86850; 86900; 86901; 87040; 87070; 87205; 89051; 93005; 93010; 96374; 96375; 96376; C9113; J0696; J1940; J2001; J2060; J2270; J2354; J2916; J3010; J3411; J3430; J3490; J7042; J7050; J7510; P9016; P9047; P9059; Q0162; Q0163